=== PATIENT | female | born 1935 | race Caucasian/White ===

== ENCOUNTER 2017-04-02 09:53 | Inpatient (IN) | payer MEDICARE, OTHER ==
[2017-04-02 10:35] LABS: CHLORIDE,CL 104 mEq/L (98-106); SODIUM,NA 143 mEq/L (136-145)
[2017-04-02] MEDS ORDERED: Furosemide 40 MG Tab PO PRN (11:37)
[2017-04-02] MEDS ORDERED: hydrOXYzine HCl 25 MG Tab PO PRN (11:37)
[2017-04-02] MEDS ORDERED: Albuterol/Ipratropium 3.0-0.5 MG/3 ML Neb Soln NEB PRN (11:55)
[2017-04-02] MEDS ORDERED: Sodium Chloride 0.9% 1,000 ML IV SCH (11:55)
[2017-04-02] MEDS ORDERED: Acetaminophen 325 MG Tab PO PRN (11:55)
[2017-04-02] MEDS ORDERED: Ibuprofen 200 MG Tab PO PRN (11:55)
[2017-04-02] MEDS ORDERED: LORazepam 2 MG/ML Syringe IVPUSH STA (12:28)
[2017-04-02] MEDS: cefTRIAXone 1 GM Vial IVPUSH SCH (13:52)
[2017-04-02] MEDS ORDERED: traMADol 50 MG Tab PO PRN (14:37)
[2017-04-02] MEDS ORDERED: Warfarin 5 MG Tab PO SCH (14:45)
[2017-04-02] MEDS: Sodium Chloride 0.9% 1,000 ML IV SCH (15:55)
[2017-04-02] MEDS: Metoprolol Tartrate 25 MG Tab PO SCH (20:02)
[2017-04-02] MEDS: Acetaminophen/HYDROcodone 325-5 MG Tab PO PRN (23:11)
[2017-04-03] MEDS: Acetaminophen/HYDROcodone 325-5 MG Tab PO PRN ×2 (02:47→19:42)
[2017-04-03] MEDS: Sodium Chloride 0.9% 1,000 ML IV SCH ×2 (05:15→16:02)
[2017-04-03] MEDS ORDERED: NIFEdipine 30 MG Tab.ER PO SCH (08:00)
[2017-04-03] MEDS ORDERED: [UNRECOGNIZED DRUG - OTHER] PO SCH (08:00)
[2017-04-03] MEDS ORDERED: Non-Formulary Medication 1 Each (Cholecalciferol (Vitamin D3) [Vitamin D] 5,000 UNIT) PO SCH (08:00)
--- NOTE | 2017-04-03 08:58 | HP ---
CHIEF COMPLAINT: Dizziness, weakness, and slurred speech. HISTORY OF PRESENT ILLNESS: The patient's is also at the bedside with the patient. He also helps the patient with history as she is not able to say everything. The patient and at bedside reports, the patient in the last 10 days has been having some dizziness. also reports that the patient over the last 10 days has had slurred speech. He reports over the last 10 days, her slurred speech has actually become worse in nature and sometimes at points where he cannot even understand her. He does report too that she used to be able to ambulate without any difficulty, without a cane, but over the last 10 days her gait has become very irregular and at times, she looks as though she is going to fall over. He says it does not look like she is going to fall over from either side to side, but there is no distinction between which side that she may fall to or lean. He does report it looks like she is kind of shuffling her gait, almost kind of stumbles at times. She has not fallen, but he does report he has encouraged her to use a cane. She has been using a cane, but she also does have some gait difficulties with using this. He reports at times it seems like she has been confused or little disoriented. He says she is just not really acting herself and she does not know about her daily routines, which is totally unlike her. He reports that she is normally fully alert, fully oriented, converse in full and complete sentences without difficulty and she does not have any slurred speech. He is predominantly historian here. The patient does report that it feels like she just feels kind of generally weak and she has had dizziness. She does state that she feels like she has had a stroke. She also does report some mild dysuria, was going on for the last week or so. The patient also reports that she has had some nausea and generalized headache. She also reports she has had ringing in both of her ears. ACTIVE PROBLEMS: Confusion, migraines, diarrhea, allergic rhinitis, anemia, atrial fibrillation, CAD, dizziness, essential hypertension, fatigue, GERD, hyperlipidemia, AR, osteopenia, TIA, generalized weakness, rheumatoid arthritis. CURRENT MEDICATIONS: Calcium, magnesium, Lasix, hydroxyzine, lutein, magnesium oxide, metoprolol tartrate, oxybutynin, stool softener, tramadol, warfarin. ALLERGIES: CEFTIN, , DELON, CELEBREX, CODEINE, LINEZOLID, MACROBID, PENICILLINS, MORPHINE. PAST FAMILY AND SOCIAL HISTORY: Not pertinent. REVIEW OF SYSTEMS: Dizziness, headache, ringing in the ears, nausea, headache, generalized weakness, slurred speech, gait ataxia. Denies syncope, neck pain, neck stiffness, chest pain, shortness of breath, fever, abdominal pain, bowel changes, rashes. Denies unilateral weaknesses. PHYSICAL EXAMINATION: VITAL SIGNS: Temperature 96.5, heart rate 72, respirations 16, and blood pressure 146/80. GENERAL: The patient is alert. She is oriented as well. HEENT: Bilateral TMs hearing aids are removed and replaced after exam. Bilateral TMs canals are normal. Bilateral eyes, PERRL. She does find it difficult to EOMI. Nose, normal. Mouth, no pharyngeal erythema, exudate, or abnormality. NECK: Range of motion normal. Supple. Trachea midline. No lymphadenopathy. CARDIOVASCULAR: Regular rate, regular rhythm. There is a possible systolic murmur grade 2/5. RESPIRATORY: Effort normal. Speaks in full sentences. Lung sounds clear all throughout. ABDOMEN: Bowel sounds present. Soft, nontender, nondistended. EXTREMITIES: Pulses +2. Capillary refill less than 2 seconds. Sensory and motor function intact. Neurovascularly intact. NEUROLOGIC: She is equal bilaterally. She does find it difficult to having EOMI. She also finds it difficult to use her tongue in an upward and downward position and when she moves her tongue to the right side she actually tilt her head in assistance what appears like to get her tongue in the right side of the mouth as well on this exam. Although, her upper extremities, I do feel equal cripple worker bilaterally. Extremities, she does struggle to lift her left leg as she reports this is chronic because she has chronic hip pain and left lower leg pain. She reports this is not new. She does have slurred speech on examination. I am unable to understand her. reports this is new over the last 10 days and progressively become worse. TESTING: Urinalysis was obtained. She does have UTI, this is nitrite positive. CMP was obtained. Glucose is 158, BUN is elevated at 44, creatinine is elevated at 2.9, this was 1.3 on December 28 of this year. Her GFR is 15. Her calcium is also high at 12.3. Troponin is negative. BNP is high at 3702. CRP is normal 0.4. EKG done at 10:31 a.m. this morning, rate of 67, that is normal sinus rhythm. Lactic acid is normal at 1.8. PT/INR; her PT is 40.7, her INR is 3.62. She is on Coumadin. CBC; white blood cells normal, hemoglobin 11.6, otherwise, unremarkable. We did obtain a head CT without contrast, this does not show any acute infarcts, does show quite a bit of vessel disease. Recommended an MRI. PLAN: The patient is to follow up with primary care provider as she will be admitted in the hospital inpatient, she has an acute admission. This is due to her renal insufficiency, altered mental status, slurred speech, neurological symptoms, gait ataxia at home, and also UTI. I did admit this patient to Dr. Villalobos as Dr. Nascimento is currently out of the office this week. The patient voices understanding of admission. She agrees with this. I did put orders in [facility] system. We will give her a liter of fluid bolus and then normal saline 75 an hour after this. The patient will be given Rocephin IV for UTI symptoms. We did also order an MRI without contrast of the brain, without out due to renal function and radiologist's recommendations. Cannot exclude that this patient has not had a stroke. Therefore, that is reasoning for MRI. We will wait on those results. I also used past family and social history of this report for H and P for this admission. ASSESSMENT: URINARY TRACT INFECTION, RENAL INSUFFICIENCY, GENERALIZED WEAKNESS, AND ALSO RULE OUT FOR MRI FOR STROKE. MIKEY/DARSHANA /[id number]
[2017-04-03] MEDS: Docusate Sodium 100 MG Cap PO SCH (09:01)
[2017-04-03] MEDS: Metoprolol Tartrate 25 MG Tab PO SCH ×2 (09:02→19:39)
[2017-04-03] MEDS: Vitamin B Complex Cap PO SCH (09:03)
[2017-04-03] MEDS: Oxybutynin 5 MG Tab.ER PO SCH (09:03)
[2017-04-03] MEDS: Cholecalciferol (Vitamin D3) 1,000 Unit Tab PO SCH (09:03)
[2017-04-03] MEDS: cefTRIAXone 1 GM Vial IVPUSH SCH (09:05)
[2017-04-03] MEDS: LUTEIN PO SCH (09:10)
[2017-04-03] MEDS ORDERED: Potassium Chloride 40 MEQ in Premix Bag 1 BAG IV ONE (13:30)
[2017-04-03] MEDS: Simvastatin 20 MG Tab PO SCH (19:39)
[2017-04-03] MEDS: Ondansetron 4 MG/2 ML SDV IV PRN (19:44)
[2017-04-04] MEDS: Sodium Chloride 0.9% 1,000 ML IV SCH ×2 (01:08→14:36)
[2017-04-04] MEDS: Acetaminophen/HYDROcodone 325-5 MG Tab PO PRN ×4 (01:09→22:53)
[2017-04-04] MEDS: cefTRIAXone 1 GM Vial IVPUSH SCH (07:46)
[2017-04-04] MEDS: Cholecalciferol (Vitamin D3) 1,000 Unit Tab PO SCH (07:48)
[2017-04-04] MEDS: Docusate Sodium 100 MG Cap PO SCH (07:48)
[2017-04-04] MEDS: Oxybutynin 5 MG Tab.ER PO SCH (07:48)
[2017-04-04] MEDS: Vitamin B Complex Cap PO SCH (07:48)
[2017-04-04] MEDS: Metoprolol Tartrate 25 MG Tab PO SCH ×2 (07:48→19:32)
[2017-04-04] MEDS: LUTEIN PO SCH (07:57)
--- NOTE | 2017-04-04 09:30 | PN ---
DATE: 04/03/2017 S: Chas is an 82-year-old female who was admitted to the hospital yesterday by Albert Liu and welcome provider with concerns of generalized weakness, concerns of whether or not she is having a UTI or stroke-like symptoms. Family members are present. She states that she is feeling okay today as she really denies any concerns presently. No new onset of any symptoms. States she continues to have some weakness, however, they have been getting her up and ambulating with physical therapy for strengthening. She has remained afebrile. Initial urine culture did come back and show less than 10,000 colonies per mL with a gram-positive growth. She does have a strong history of UTIs with resistance to multiple antibiotics. Blood cultures were negative. O: VITAL SIGNS: Blood pressure 152/76, O2 is 94% on room air, respiratory rate of 20, pulse 65, temp of 98.4. GENERAL: Pleasant, cooperative female. She is sitting in a recliner. Working with physical therapy upon my entry. She does not appear to be any acute distress. HEENT: Grossly unremarkable. LUNGS: Clear to auscultation. I did not hear any adventitious sounds. CARDIAC: Regular rate and rhythm. Systolic murmur is noted. ABDOMEN: Soft, nontender, nondistended. Bowel sounds are normoactive. EXTREMITIES: No pedal edema is noted. LABORATORY WORK: White blood count has remained normal at 5100. INR continues to be high at 3.63 with a PT of 40.8. Creatinine has come down from 2.9 to 2.6. Potassium has dropped from 3.6 to 3.0. Calcium is within normal limits presently. ProBNP initially showed 3702. ASSESSMENT: 1. ACUTE URINARY TRACT INFECTION. 2. GENERALIZED WEAKNESS. 3. RENAL INSUFFICIENCY. P: We will continue with IV Rocephin at this point in time. We will continue with IV fluids as well. I did discuss with the family monitoring her creatinine and her fluid intake. We will also wait for culture. Dr. Nascimento will be back tomorrow to further assess. If they have any concerns sooner, they will have to definitely let us know. KYREE/DARSHANA /[id number]
[2017-04-04] MEDS: Warfarin 2.5 MG Tab PO SCH (15:40)
[2017-04-04] MEDS ORDERED: Magnesium Sulfate/D5W 2 GM in Premix Bag 1 BAG IV ONE (15:43)
[2017-04-04] MEDS: Simvastatin 20 MG Tab PO SCH (19:32)
[2017-04-05] MEDS: Ondansetron 4 MG/2 ML SDV IV PRN (02:54)
[2017-04-05] MEDS: Acetaminophen/HYDROcodone 325-5 MG Tab PO PRN ×3 (02:55→13:59)
[2017-04-05] MEDS: Sodium Chloride 0.9% 1,000 ML IV SCH (05:49)
[2017-04-05] MEDS: Vitamin B Complex Cap PO SCH (08:07)
[2017-04-05] MEDS: cefTRIAXone 1 GM Vial IVPUSH SCH (08:07)
[2017-04-05] MEDS: Metoprolol Tartrate 25 MG Tab PO SCH (08:07)
[2017-04-05] MEDS: Docusate Sodium 100 MG Cap PO SCH (08:07)
[2017-04-05] MEDS: Cholecalciferol (Vitamin D3) 1,000 Unit Tab PO SCH (08:13)
[2017-04-05] MEDS: Oxybutynin 5 MG Tab.ER PO SCH (08:13)
[2017-04-05] MEDS: LUTEIN PO SCH (08:18)
[2017-04-05] MEDS ORDERED: Potassium Chloride 40 MEQ in Premix Bag 1 BAG IV SCH (08:30)
[2017-04-05] MEDS ORDERED: Sodium Chloride 0.45% 1,000 ML IV SCH (08:30)
--- NOTE | 2017-04-05 09:12 | PN ---
DATE: 04/05/2017 Chas Waterman came in with UTI with renal insufficiency. She is hypokalemic this morning so I am going to give her some IV potassium and then hopefully discharge later up on today. RAHUL/DARSHANA /[id number]
--- NOTE | 2017-04-05 09:12 | PN ---
DATE: 04/04/2017 S: Chas Waterman came in with some altered mental state secondary to UTI started on IV Rocephin, much improved today. O: NECK: Supple. CHEST: Clear. CARDIAC: Regular. ABDOMEN: Soft. EXTREMITIES: No edema. ASSESSMENT: 1. LEFT VENTRICULAR SYSTOLIC CONGESTIVE HEART FAILURE. 2. URINARY TRACT INFECTION WITH CONFUSION. 3. ACUTE AND CHRONIC RENAL INSUFFICIENCY. 4. LOW MAGNESIUM. P: Continue present therapy. RAHUL/DARSHANA /[id number]
[2017-04-05] MEDS: Warfarin 2.5 MG Tab PO SCH (12:36)
[2017-04-05 15:57] VITALS: BP 140/73
[2017-04-08] MEDS ORDERED: Warfarin 5 MG Tab PO SCH (12:00)
--- NOTE | 2017-04-09 07:54 | DISCH ---
HOSPITAL COURSE: This is an elderly white female, came in somewhat confused. Made diagnosis of UTI. She was started on intravenous antibiotics. Responded nicely and at the time of discharge, she was less confused. They did start her on normal saline IV and she became hypokalemic, so I corrected that prior to discharge and that will be rechecked next ; otherwise CBC, hemoglobin went from 11.6 to 9.4 related mainly to infection or hydration. INR was adequate. Creatinine went from 2.9 down to 2.4, that will be rechecked outpatient. Potassium went from 3.6 to 2.9, then was given IV potassium. C- reactive protein went from 1.1 to 0.8. ProBNP was 3702. Urinalysis, positive nitrates. DISPOSITION: The patient is now discharged home. We will see her back in the clinic next week. At that time, we will do a CBC, panel-8, and INR. DISCHARGE MEDICATIONS: Home medications plus Macrobid b.i.d. for 6 days and [place]. DISCHARGE DIAGNOSIS: 1. URINARY TRACT INFECTION. 2. ACUTE AND CHRONIC RENAL INSUFFICIENCY. 3. LEFT VENTRICULAR SYSTOLIC CONGESTIVE HEART FAILURE. 4. HYPERTENSION. RAHUL/DARSHANA /[id number]
== END 2017-04-05 17:50 | disposition home or self-care (01) | DRG 690 ==
LOC: CC.CT 09:53 → UNDOADMIN 11:06 → CC.MS 11:06
PROVIDERS: ADMIT Nurse Practitioner; ATTEND General Practice
DX: N39.0 Urinary tract infection, site not specified (principal); R42 Dizziness and giddiness; I13.0 Hypertensive heart and chronic kidney disease with heart failure and stage 1 through stage 4 chronic kidney disease, or unspecified chronic kidney disease; I50.1 Left ventricular failure, unspecified; N17.9 Acute kidney failure, unspecified; I25.10 Atherosclerotic heart disease of native coronary artery without angina pectoris; N28.9 Disorder of kidney and ureter, unspecified; R26.0 Ataxic gait; R47.81 Slurred speech; R53.1 Weakness; I48.91 Unspecified atrial fibrillation; D64.9 Anemia, unspecified; K21.9 Gastro-esophageal reflux disease without esophagitis; E78.5 Hyperlipidemia, unspecified; I25.2 Old myocardial infarction; M85.80 Other specified disorders of bone density and structure, unspecified site; M06.9 Rheumatoid arthritis, unspecified; Z86.73 Personal history of transient ischemic attack (TIA), and cerebral infarction without residual deficits; Z88.0 Allergy status to penicillin; Z88.6 Allergy status to analgesic agent; Z88.1 Allergy status to other antibiotic agents; Z88.8 Allergy status to other drugs, medicaments and biological substances; Z79.01 Long term (current) use of anticoagulants; Z79.899 Other long term (current) drug therapy; E83.42 Hypomagnesemia; N18.9 Chronic kidney disease, unspecified; E87.6 Hypokalemia; R41.82 Altered mental status, unspecified
CPT/HCPCS: 36415; 70450; 71020; 80048; 80053; 81001; 83605; 83735; 83880; 84484; 85025; 85610; 86140; 87040; 87086; 93005; 93010; 97110-GP; 97161-GP; A9270-GY; J0696; J2060; J2405; J3475; J3480; J7030

== ENCOUNTER 2017-04-06 11:39 | Inpatient (IN) | payer MEDICARE, OTHER ==
[2017-04-06 12:08] LABS: CHLORIDE,CL 109 mEq/L (98-106); SODIUM,NA 145 mEq/L (136-145)
--- NOTE | 2017-04-06 12:19 | EDM.PDOC ---
ED HPI GENERAL MEDICAL PROBLEM - General Chief Complaint: Chest Pain Stated Complaint: chest pain Time Seen by Provider: 04/06/17 11:49 Source of Information: Reports: Patient History Limitations: Reports: No Limitations - History of Present Illness INITIAL COMMENTS - FREE TEXT/NARRATIVE: Patient woke up this mourning and started having chest pain shortly afterward, she states that oxygen has improved her car[place]qu[place] considerably, and is not having pain at this time. patient was discharged from the hospatal yesterday for decreased LOC and treatment of UTI. Onset: Today Duration: Hour(s): Location: Reports: Chest Quality: Reports: Dull, Pressure Severity: Moderate Improves with: Reports: Other Worsens with: Reports: None Associated Symptoms: Reports: Shortness of Breath Left Chest Pain Score (Numeric/FACES): 4 - Related Data Allergies Allergy/AdvReac Type Severity Reaction Status Date / Time cefuroxime axetil Allergy Hives Verified 04/06/17 11:26 [From Ceftin] celecoxib [From Celebrex] Allergy Itching Verified 04/06/17 11:26 ciprofloxacin [From Cipro] Allergy Body Aches Verified 04/06/17 11:26 codeine Allergy Stomach Verified 04/06/17 11:26 Upset fexofenadine HCl Allergy Itching Verified 04/06/17 11:26 [From Maria De Jesus] linezolid Allergy Body Aches Verified 04/06/17 11:26 morphine Allergy Cannot Verified 04/06/17 11:26 Remember nitrofurantoin Allergy Rash Verified 04/06/17 11:26 [From Macrobid] Penicillins Allergy Rash Verified 04/06/17 11:26 Sulfa (Sulfonamide Allergy Hives Verified 04/06/17 11:26 Antibiotics) Home Meds: Home Meds Furosemide [Lasix] 40 mg PO DAILY PRN 03/05/14 [History] Oxybutynin Chloride [Oxybutynin Chloride ER] 10 mg PO DAILY 03/05/14 [History] José Miguel Cit/Mag/D3/Zn/Real Estate Underwriter/Srinivas/Bor [Citracal-Vit D + Magnesium] 1 tab PO BID [History] Vitamin B Complex 1 cap PO DAILY 07/26/16 [History] hydrOXYzine Pamoate [Hydroxyzine Pamoate] 25 mg PO TID PRN 07/26/16 [History] Cholecalciferol (Vitamin D3) [Vitamin D] 5,000 unit PO DAILY 04/02/17 [History] Docusate Sodium [Stool Softener] 200 mg PO DAILY 04/02/17 [History] Lutein 20 mg PO DAILY 04/02/17 [History] Metoprolol Tartrate 25 mg PO BID 04/02/17 [History] Warfarin [Coumadin] 2.5 mg PO SUTUWETHFRSA 04/02/17 [History] Warfarin [Coumadin] 5 mg PO MO 04/02/17 [History] traMADol HCl [Tramadol HCl] 50 mg PO QID PRN 04/02/17 [History] Acetaminophen/HYDROcodone [[place] 325-5 MG] 1 tab PO Q4H PRN #50 tablet 04/05/17 [Rx] Cephalexin [Keflex] 250 mg PO BID #10 capsule 04/05/17 [Rx] Past Medical History HEENT History: Reports: Allergic Rhinitis, Cataract, Hard of Hearing Cardiovascular History: Reports: Blood Clots/VTE/DVT, High Cholesterol, Hypertension Gastrointestinal History: Reports: GERD, Hiatal Hernia Genitourinary History: Reports: Urinary Incontinence, UTI, Recurrent Other Genitourinary History: nocturia, overactive bladder Musculoskeletal History: Reports: Arthritis, Back Pain, Chronic, RA, Other (See Below) Other Musculoskeletal History: degenerative joint disease, left hip pain, left knee pain, arthralgia, osteopenia Neurological History: Reports: CVA, Migraines Hematologic History: Reports: Other (See Below) Other Hematologic History: vitamin D definciency Dermatologic History: Reports: Urticaria - Past Surgical History HEENT Surgical History: Reports: Cataract Surgery GI Surgical History: Reports: Appendectomy, Cholecystectomy, Colostomy Female Surgical History: Reports: Section, Hysterectomy, Oophorectomy Neurological Surgical History: Reports: C-Spine Musculoskeletal Surgical History: Reports: Knee Replacement, Other (See Below) Other Musculoskeletal Surgeries/Procedures:: neck surgery Social & Family History - Family History Family Medical History: Noncontributory - Tobacco Use Smoking Status *Q: Never Smoker Second Hand Smoke Exposure: No - Caffeine Use Caffeine Use: Reports: None - Recreational Drug Use Recreational Drug Use: No ED ROS GENERAL - Review of Systems Review Of Systems: See Below Constitutional: Reports: No Symptoms HEENT: Reports: No Symptoms Respiratory: Reports: Shortness of Breath Cardiovascular: Reports: Chest Pain Endocrine: Reports: No Symptoms GI/Abdominal: Reports: No Symptoms : Reports: No Symptoms Musculoskeletal: Reports: No Symptoms Skin: Reports: No Symptoms Neurological: Reports: Confusion Hematologic/Lymphatic: Reports: No Symptoms Immunologic: Reports: No Symptoms ED EXAM, GENERAL - Physical Exam Exam: See Below Exam Limited By: No Limitations General Appearance: Lethargic Ears: Normal External Exam Nose: Normal Inspection Throat/Mouth: Normal Inspection Head: Atraumatic, Normocephalic Neck: Normal Inspection, Supple Respiratory/Chest: No Respiratory Distress, Lungs Clear Cardiovascular: Normal Peripheral Pulses, Regular Rate, Rhythm, No Edema GI/Abdominal: Normal Bowel Sounds, Soft, Non-Tender Extremities: Normal Inspection, Normal Range of Motion Neurological: Inattentive Psychiatric: Depressed Mood Skin Exam: Warm, Dry, Intact Lymphatic: No Adenopathy EKG INTERPRETATION EKG Date: 04/06/17 Rhythm: NSR Course - Vital Signs Last Recorded V/S: Last Vital Signs Temp 98.9 F 04/06/17 17:37 Pulse 69 04/06/17 17:37 Resp 18 04/06/17 17:37 BP 197/79 H 04/06/17 17:37 Pulse Ox 92 L 04/06/17 17:37 - Orders/Labs/Meds Orders: Active Orders 24 hr Category Date Time Status Chest 2V [CR] Stat Exams 04/06/17 11:32 Taken Potassium Chloride [Klor-Con 10] Med 04/06/17 17:30 Active 10 meq PO BIDMEALS Medication Orders Hydrocodone Bitart/Acetaminophen ([place] 325-5 Mg) 2 tab PO Q4H PRN PRN Reason: Pain (moderate 4-6) Hydrocodone Bitart/Acetaminophen ([place] 325-5 Mg) 1 tab PO Q4H PRN PRN Reason: Pain Cephalexin (Keflex) 250 mg PO BID LENO Docusate Sodium (Colace) 200 mg PO DAILY LENO Enoxaparin Sodium (Lovenox) 40 mg SUBCUT Q12H LENO Furosemide (Lasix) 40 mg PO DAILY PRN PRN Reason: Edema Metoprolol Tartrate (Lopressor) 25 mg PO BID [facility] Non-Formulary Medication (José Miguel Cit/Mag/D3/Zn/Real Estate Underwriter/Srinivas/Bor [Citracal-Vit D + Magnesium]) 1 tab PO BID [facility] Non-Formulary Medication (Cholecalciferol (Vitamin D3) [Vitamin D]) 5,000 unit PO DAILY [facility] Non-Formulary Medication (Lutein [Lutein]) 20 mg PO DAILY [facility] Non-Formulary Medication (Oxybutynin Chloride [Oxybutynin Chloride Er]) 10 mg PO DAILY [facility] Non-Formulary Medication (Hydroxyzine Pamoate [Hydroxyzine Pamoate]) 25 mg PO TID PRN PRN Reason: Itching Ondansetron HCl (Zofran Odt) 4 mg PO Q4H PRN PRN Reason: nausea, able to take PO Potassium Chloride (Klor-Con 10) 10 meq PO BIDMEALS [facility] Last Admin: 04/06/17 18:31 Dose: 10 meq Vitamin B Complex (Vitamin B Complex) each PO DAILY [facility] Warfarin Sodium (Coumadin) 2.5 mg PO SUTUWETHFRSA [facility] Warfarin Sodium (Coumadin) 5 mg PO MO [facility] Labs: Laboratory Tests 04/06/17 04/06/17 04/06/17 Range/Units 11:50 11:50 11:50 WBC 5.7 (5.0-10.0) 10^3/uL RBC 3.47 L (4.00-5.50) 10^6/uL Hgb 9.5 L (12.0-16.0) g/dL Hct 29.7 L (37.0-47.0) % MCV 85.6 (82.0-94.0) fL MCH 27.4 (27.0-32.0) pg MCHC 32.0 L (33.0-38.0) g/dL RDW Coeff of Lakshmi 17.1 H (11.0-15.0) % Plt Count 231 (150-400) 10^3/uL Neut % (Auto) 61.2 (35-85) % Lymph % (Auto) 19.0 (10-55) % Frontier % (Auto) 12.9 (0-16) % Eos % (Auto) 6.0 H (0-5) % Baso % (Auto) 0.9 (0-3) % Neut # (Auto) 3.47 (1.80-7.00) 10^3/uL Lymph # (Auto) 1.08 (1.00-4.80) 10^3/uL Frontier # (Auto) 0.73 (0.00-0.80) 10^3/uL Eos # (Auto) 0.34 (0.00-0.45) 10^3/uL Baso # (Auto) 0.05 10^3/uL PT 25.8 H (9.7-12.3) SEC INR 2.33 H (0.92-1.18) APTT 37.2 (20.0-45.0) SEC Sodium 145 (136-145) mEq/L Potassium 3.2 L (3.5-5.0) mEq/L Chloride 109 H (98-106) mEq/L Carbon Dioxide 25 (21-32) mmol/L BUN 26 H (7-18) mg/dL Creatinine 2.4 H (0.6-1.0) mg/dL Est Cr Clr Drug Dosing TNP Estimated GFR (MDRD) 19 L (>=60) mL/min Glucose 115 H (75-99) mg/dL Calcium 9.9 (8.4-10.1) mg/dL Lactate Dehydrogenase 237 H (100-190) U/L Creatine Kinase 33 (21-215) U/L Troponin I 0.088 H (0.00-0.06) ng/mL Urine Color (YELLOW) Urine Appearance (CLEAR) Urine pH (4.5-8.0) Ur Specific [place] (1.003-1.020) Urine Protein (NEGATIVE) mg/dL Urine Glucose (UA) (NEGATIVE) mg/dL Urine Ketones (NEGATIVE) mg/dL Urine Occult Blood (NEGATIVE) Urine Nitrite (NEGATIVE) Urine Bilirubin (NEGATIVE) Urine Urobilinogen (0.2-1.0) EU/dL Ur Leukocyte Esterase (NEGATIVE) Urine RBC (0-5) /HPF Urine WBC (0-5) /HPF Ur Squamous Epith Cells (NOT SEEN) /HPF Urine Mucus (NOT SEEN) /HPF 04/06/17 04/06/17 Range/Units 14:30 16:00 WBC (5.0-10.0) 10^3/uL RBC (4.00-5.50) 10^6/uL Hgb (12.0-16.0) g/dL Hct (37.0-47.0) % MCV (82.0-94.0) fL MCH (27.0-32.0) pg MCHC (33.0-38.0) g/dL RDW Coeff of Lakshmi (11.0-15.0) % Plt Count (150-400) 10^3/uL Neut % (Auto) (35-85) % Lymph % (Auto) (10-55) % Frontier % (Auto) (0-16) % Eos % (Auto) (0-5) % Baso % (Auto) (0-3) % Neut # (Auto) (1.80-7.00) 10^3/uL Lymph # (Auto) (1.00-4.80) 10^3/uL Frontier # (Auto) (0.00-0.80) 10^3/uL Eos # (Auto) (0.00-0.45) 10^3/uL Baso # (Auto) 10^3/uL PT (9.7-12.3) SEC INR (0.92-1.18) APTT (20.0-45.0) SEC Sodium (136-145) mEq/L Potassium (3.5-5.0) mEq/L Chloride (98-106) mEq/L Carbon Dioxide (21-32) mmol/L BUN (7-18) mg/dL Creatinine (0.6-1.0) mg/dL Est Cr Clr Drug Dosing Estimated GFR (MDRD) (>=60) mL/min Glucose (75-99) mg/dL Calcium (8.4-10.1) mg/dL Lactate Dehydrogenase (100-190) U/L Creatine Kinase (21-215) U/L Troponin I 0.108 H (0.00-0.06) ng/mL Urine Color Yellow (YELLOW) Urine Appearance Clear (CLEAR) Urine pH 6.0 (4.5-8.0) Ur Specific [place] 1.007 (1.003-1.020) Urine Protein Negative (NEGATIVE) mg/dL Urine Glucose (UA) Negative (NEGATIVE) mg/dL Urine Ketones Negative (NEGATIVE) mg/dL Urine Occult Blood Negative (NEGATIVE) Urine Nitrite Negative (NEGATIVE) Urine Bilirubin Negative (NEGATIVE) Urine Urobilinogen 0.2 (0.2-1.0) EU/dL Ur Leukocyte Esterase Negative (NEGATIVE) Urine RBC Not seen (0-5) /HPF Urine WBC 0-5 (0-5) /HPF Ur Squamous Epith Cells Occasional H (NOT SEEN) /HPF Urine Mucus Occasional H (NOT SEEN) /HPF Meds: Medications Generic Name Dose Route Start Last Admin Trade Name Freq PRN Reason Stop Dose Admin Hydrocodone Bitart/Acetaminophen 2 tab 04/06/17 18:16 [place] 325-5 Mg PO Q4H PRN Pain (moderate 4-6) Hydrocodone Bitart/Acetaminophen 1 tab 04/06/17 18:28 [place] 325-5 Mg PO Q4H PRN Pain Cephalexin 250 mg 04/06/17 20:00 Keflex PO BID [facility] Docusate Sodium 200 mg 04/07/17 08:00 Colace PO DAILY [facility] Enoxaparin Sodium 40 mg 04/06/17 18:30 Lovenox SUBCUT Q12H [facility] Furosemide 40 mg 04/06/17 18:28 Lasix PO DAILY PRN Edema Metoprolol Tartrate 25 mg 04/06/17 20:00 Lopressor PO BID [facility] Non-Formulary Medication 1 tab 04/06/17 20:00 José Miguel Cit/Mag/D3/Zn/Real Estate Underwriter/Srinivas/Bor [Citracal-Vit D + Magnesium] PO BID [facility] Non-Formulary Medication 5,000 unit 04/07/17 08:00 Cholecalciferol (Vitamin D3) [Vitamin D] PO DAILY [facility] Non-Formulary Medication 20 mg 04/07/17 08:00 Lutein [Lutein] PO DAILY [facility] Non-Formulary Medication 10 mg 04/07/17 08:00 Oxybutynin Chloride [Oxybutynin Chloride Er] PO DAILY [facility] Non-Formulary Medication 25 mg 04/06/17 18:28 Hydroxyzine Pamoate [Hydroxyzine Pamoate] PO TID PRN Itching Ondansetron HCl 4 mg 04/06/17 18:16 Zofran Odt PO Q4H PRN nausea, able to take PO Potassium Chloride 10 meq 04/06/17 17:30 04/06/17 18:31 Klor-Con 10 PO 10 meq BIDMEALS [facility] Administration Vitamin B Complex each 04/07/17 08:00 Vitamin B Complex PO DAILY [facility] Warfarin Sodium 2.5 mg 04/06/17 18:30 Coumadin PO SUTUWETHFRSA [facility] Warfarin Sodium 5 mg 04/08/17 18:28 Coumadin PO MO LENO Discontinued Medications Generic Name Dose Route Start Last Admin Trade Name Freq PRN Reason Stop Dose Admin Hydrocodone Bitart/Acetaminophen 1 tab 04/06/17 14:47 04/06/17 15:06 [place] 325-5 Mg PO 04/06/17 14:48 1 tab ONETIME ONE Administration Departure - Departure Time of Disposition: 18:33 Disposition: Admitted As Inpatient 65 Condition: fair Clinical Impression: Acute myocardial infarction - My Orders Last 24 Hours: My Active Orders 04/06/17 11:32 Chest 2V [CR] Stat 04/06/17 17:30 Potassium Chloride [Klor-Con 10] 10 meq PO BIDMEALS - Assessment/Plan Last 24 Hours: My Active Orders 04/06/17 11:32 Chest 2V [CR] Stat 04/06/17 17:30 Potassium Chloride [Klor-Con 10] 10 meq PO BIDMEALS
[2017-04-06] MEDS ORDERED: Acetaminophen/HYDROcodone 325-5 MG Tab PO ONE (14:47)
[2017-04-06] MEDS ORDERED: Ondansetron 4 MG Tab.DIS PO PRN (18:16)
[2017-04-06] MEDS ORDERED: Furosemide 40 MG Tab PO PRN (18:28)
[2017-04-06] MEDS ORDERED: Warfarin 5 MG Tab PO SCH (18:30)
[2017-04-06] MEDS: Potassium Chloride 10 MEQ Tab.ER PO SCH (18:31)
[2017-04-06] MEDS ORDERED: hydrOXYzine HCl 25 MG Tab PO PRN (18:52)
[2017-04-06] MEDS: Metoprolol Tartrate 25 MG Tab PO SCH (19:34)
[2017-04-06] MEDS: Calcium Carbonate/Magnesium Oxide/Zinc Oxide Tab PO SCH (19:34)
[2017-04-06] MEDS: Enoxaparin 40 MG/0.4 ML Syringe SUBCUT SCH (19:35)
[2017-04-06] MEDS: Cephalexin 250 MG Cap PO SCH (19:35)
--- NOTE | 2017-04-06 20:24 | PCM.PN ---
- General Info Date of Service: 04/06/17 (After talking extensivley with the patient and her family, and instructing them that it looked as if Ms. Waterman has had a SD, i gave them the option to tranfer to [place] to a cardioligist, but they decined stating rena they really didnt want to persue things at this stage. she recently had a SD a month or so ago, and there was not much done then.) Functional Status: Reports: pain controlled - Review of Systems General: Reports: No Symptoms HEENT: Reports: no symptoms Pulmonary: Reports: no symptoms Cardiovascular: Reports: Chest Pain Gastrointestinal: Reports: No symptoms Genitourinary: Reports: no symptoms Musculoskeletal: Reports: no symptoms Skin: Reports: no symptoms Neurological: Reports: No Symptoms Psychiatric: Reports: no symptoms (patient and family opted to stay here in the hospital, and look into correction placement next week.) - Patient Data Vitals - most recent: Last Vital Signs Temp 98.3 F 04/06/17 19:24 Pulse 78 04/06/17 19:34 Resp 20 04/06/17 19:24 BP 156/73 H 04/06/17 19:34 Pulse Ox 93 L 04/06/17 19:24 Weight - most recent: 140 lb Lab Results last 24 hrs: Laboratory Results - last 24 hr 04/06/17 Range/Units 19:15 Troponin I 0.102 H (0.00-0.06) ng/mL Med Orders - Current: Current Medications Hydrocodone Bitart/Acetaminophen ([place] 325-5 Mg) 2 tab PO Q4H PRN PRN Reason: Pain (moderate 4-6) Hydrocodone Bitart/Acetaminophen ([place] 325-5 Mg) 1 tab PO Q4H PRN PRN Reason: Pain Calcium/Magnesium/Zinc (Calcium & Magnesium Plus Zinc) 1 tab PO BID [facility] Last Admin: 04/06/17 19:34 Dose: 1 tab Cephalexin (Keflex) 250 mg PO BID [facility] Last Admin: 04/06/17 19:35 Dose: 250 mg Cholecalciferol (Vitamin D3) 5,000 units PO DAILY [facility] Docusate Sodium (Colace) 200 mg PO DAILY [facility] Enoxaparin Sodium (Lovenox) 40 mg SUBCUT Q12H [facility] Last Admin: 04/06/17 19:35 Dose: 40 mg Furosemide (Lasix) 40 mg PO DAILY PRN PRN Reason: Edema Hydroxyzine HCl (Atarax) 25 mg PO TID PRN PRN Reason: Itching Metoprolol Tartrate (Lopressor) 25 mg PO BID [facility] Last Admin: 04/06/17 19:34 Dose: 25 mg Non-Formulary Medication (Lutein [Lutein]) 20 mg PO DAILY [facility] Ondansetron HCl (Zofran Odt) 4 mg PO Q4H PRN PRN Reason: nausea, able to take PO Oxybutynin Chloride (Oxybutynin Er) 10 mg PO DAILY [facility] Potassium Chloride (Klor-Con 10) 10 meq PO BIDMEALS [facility] Last Admin: 04/06/17 18:31 Dose: 10 meq Vitamin B Complex (Vitamin B Complex) 1 each PO DAILY [facility] Warfarin Sodium (Coumadin) 2.5 mg PO SuTuWeThFrSa@1200 [facility] Last Admin: 04/06/17 19:34 Dose: 2.5 mg Warfarin Sodium (Coumadin) 5 mg PO Mo@1200 [facility] Discontinued Medications Hydrocodone Bitart/Acetaminophen ([place] 325-5 Mg) 1 tab PO ONETIME ONE Stop: 04/06/17 14:48 Last Admin: 04/06/17 15:06 Dose: 1 tab - Problem List Review Problem List Initiated/Reviewed/Updated: Yes - My Orders Last 24 Hours: My Active Orders 04/06/17 18:16 Oxygen Therapy [RC] PRN VTE/DVT Education [RC] PER UNIT ROUTINE Vital Signs [RC] Q4H Acetaminophen/HYDROcodone [[place] 325-5 MG] 2 tab PO Q4H PRN Ondansetron [Zofran ODT] 4 mg PO Q4H PRN Resuscitation Status Routine 04/06/17 18:21 Cardiac Monitoring [RC] CONTINUOUS 04/06/17 18:28 Acetaminophen/HYDROcodone [[place] 325-5 MG] 1 tab PO Q4H PRN Furosemide [Lasix] 40 mg PO DAILY PRN 04/06/17 18:30 Warfarin [Coumadin] 2.5 mg PO SuTuWeThFrSa@1200 04/06/17 18:52 hydrOXYzine HCl [Atarax] 25 mg PO TID PRN 04/06/17 20:00 Calcium/Magnesium/Zinc [Calcium & Magnesium plus Zinc] 1 tab PO BID Cephalexin [Keflex] 250 mg PO BID Enoxaparin [Lovenox] 40 mg SUBCUT Q12H Metoprolol Tartrate [Lopressor] 25 mg PO BID 04/06/17 Dinner 2 Gram Sodium Diet [DIET] 04/07/17 05:11 BASIC METABOLIC PANEL,BMP [CHEM] AM CBC WITH AUTO DIFF [HEME] AM TROPONIN I [CHEM] AM EKG 12 Lead [EK] AM 04/07/17 08:00 Cholecalciferol (Vitamin D3) [Vitamin D3] 5,000 units PO DAILY Docusate Sodium [Colace] 200 mg PO DAILY Lutein [Lutein] 20 mg PO DAILY Oxybutynin [Oxybutynin ER] 10 mg PO DAILY Vitamin B Complex 1 each PO DAILY 04/08/17 12:00 Warfarin [Coumadin] 5 mg PO Mo@1200
[2017-04-06] MEDS: Acetaminophen/HYDROcodone 325-5 MG Tab PO PRN (22:10)
[2017-04-07] MEDS: Acetaminophen/HYDROcodone 325-5 MG Tab PO PRN ×3 (04:58→19:52)
[2017-04-07] MEDS: Docusate Sodium 100 MG Cap PO SCH (08:24)
[2017-04-07] MEDS: Enoxaparin 40 MG/0.4 ML Syringe SUBCUT SCH (08:24)
[2017-04-07] MEDS: Calcium Carbonate/Magnesium Oxide/Zinc Oxide Tab PO SCH ×2 (08:25→19:51)
[2017-04-07] MEDS: Metoprolol Tartrate 25 MG Tab PO SCH ×2 (08:25→19:51)
[2017-04-07] MEDS: Cephalexin 250 MG Cap PO SCH ×2 (08:25→19:51)
[2017-04-07] MEDS: Oxybutynin 5 MG Tab.ER PO SCH (08:26)
[2017-04-07] MEDS: Vitamin B Complex Cap PO SCH (08:26)
[2017-04-07] MEDS: Potassium Chloride 10 MEQ Tab.ER PO SCH ×2 (08:26→17:41)
[2017-04-07] MEDS: Cholecalciferol (Vitamin D3) 1,000 Unit Tab PO SCH (08:26)
--- NOTE | 2017-04-07 12:30 | PCM.PN ---
- General Info Date of Service: 04/07/17 Admission Dx/Problem (Free Text): Acute ND Functional Status: Reports: pain controlled - Review of Systems General: Reports: No Symptoms HEENT: Reports: no symptoms Pulmonary: Reports: no symptoms Cardiovascular: Reports: Chest Pain Gastrointestinal: Reports: No symptoms Genitourinary: Reports: no symptoms Musculoskeletal: Reports: no symptoms Skin: Reports: no symptoms Neurological: Reports: No Symptoms Psychiatric: Reports: no symptoms Systems Review Comment:: Sitting up in chair visiting with her daughters. Denies any pain at this time, but does state she has a feeling of heaviness in her chest. VS stable, labs ok , but serum K is still trending down, will increase po Kdur for a few days to correct. Patient is anxious to start getting up and walking, I instructed her to take it easy for the rest of the day and start walking tomorrow. Will continue to monitor closely. - Patient Data Vitals - most recent: Last Vital Signs Temp 97.8 F 04/07/17 11:48 Pulse 66 04/07/17 11:48 Resp 18 04/07/17 11:48 BP 166/72 H 04/07/17 11:48 Pulse Ox 92 L 04/07/17 11:48 Weight - most recent: 140 lb Lab Results last 24 hrs: Laboratory Results - last 24 hr 04/06/17 04/07/17 04/07/17 Range/Units 19:15 07:15 07:15 WBC 5.3 (5.0-10.0) 10^3/uL RBC 3.29 L (4.00-5.50) 10^6/uL Hgb 9.0 L (12.0-16.0) g/dL Hct 28.4 L (37.0-47.0) % MCV 86.3 (82.0-94.0) fL MCH 27.4 (27.0-32.0) pg MCHC 31.7 L (33.0-38.0) g/dL RDW Coeff of Lakshmi 17.2 H (11.0-15.0) % Plt Count 219 (150-400) 10^3/uL Neut % (Auto) 55.0 (35-85) % Lymph % (Auto) 21.8 (10-55) % [place] % (Auto) 15.2 (0-16) % Eos % (Auto) 7.4 H (0-5) % Baso % (Auto) 0.6 (0-3) % Neut # (Auto) 2.91 (1.80-7.00) 10^3/uL Lymph # (Auto) 1.15 (1.00-4.80) 10^3/uL [place] # (Auto) 0.80 (0.00-0.80) 10^3/uL Eos # (Auto) 0.39 (0.00-0.45) 10^3/uL Baso # (Auto) 0.03 10^3/uL Sodium 145 (136-145) mEq/L Potassium 3.1 L (3.5-5.0) mEq/L Chloride 110 H (98-106) mEq/L Carbon Dioxide 26 (21-32) mmol/L BUN 25 H (7-18) mg/dL Creatinine 2.2 H (0.6-1.0) mg/dL Est Cr Clr Drug Dosing 16.73 mL/min Estimated GFR (MDRD) 21 L (>=60) mL/min Glucose 94 (75-99) mg/dL Calcium 9.6 (8.4-10.1) mg/dL Troponin I 0.102 H 0.083 H (0.00-0.06) ng/mL Med Orders - Current: Current Medications Hydrocodone Bitart/Acetaminophen ([place] 325-5 Mg) 2 tab PO Q4H PRN PRN Reason: Pain (moderate 4-6) Last Admin: 04/07/17 04:58 Dose: 2 tab Hydrocodone Bitart/Acetaminophen ([place] 325-5 Mg) 1 tab PO Q4H PRN PRN Reason: Pain Calcium/Magnesium/Zinc (Calcium & Magnesium Plus Zinc) 1 tab PO BID [facility] Last Admin: 04/07/17 08:25 Dose: 1 tab Cephalexin (Keflex) 250 mg PO BID [facility] Last Admin: 04/07/17 08:25 Dose: 250 mg Cholecalciferol (Vitamin D3) 5,000 units PO DAILY [facility] Last Admin: 04/07/17 08:26 Dose: 5,000 units Docusate Sodium (Colace) 200 mg PO DAILY [facility] Last Admin: 04/07/17 08:24 Dose: 200 mg Furosemide (Lasix) 40 mg PO DAILY PRN PRN Reason: Edema Hydroxyzine HCl (Atarax) 25 mg PO TID PRN PRN Reason: Itching Metoprolol Tartrate (Lopressor) 25 mg PO BID [facility] Last Admin: 04/07/17 08:25 Dose: 25 mg Non-Formulary Medication (Lutein [Lutein]) 20 mg PO DAILY [facility] Ondansetron HCl (Zofran Odt) 4 mg PO Q4H PRN PRN Reason: nausea, able to take PO Oxybutynin Chloride (Oxybutynin Er) 10 mg PO DAILY [facility] Last Admin: 04/07/17 08:26 Dose: 10 mg Potassium Chloride (Klor-Con 10) 20 meq PO BIDMEALS [facility] Vitamin B Complex (Vitamin B Complex) 1 each PO DAILY [facility] Last Admin: 04/07/17 08:26 Dose: 1 each Warfarin Sodium (Coumadin) 2.5 mg PO SUTUWETHFRSA@2000 [facility] Warfarin Sodium (Coumadin) 5 mg PO MO@2000 [facility] Discontinued Medications Hydrocodone Bitart/Acetaminophen ([place] 325-5 Mg) 1 tab PO ONETIME ONE Stop: 04/06/17 14:48 Last Admin: 04/06/17 15:06 Dose: 1 tab Enoxaparin Sodium (Lovenox) 40 mg SUBCUT Q12H [facility] Last Admin: 04/07/17 08:24 Dose: 40 mg Potassium Chloride (Klor-Con 10) 10 meq PO BIDMEALS [facility] Last Admin: 04/07/17 08:26 Dose: 10 meq Warfarin Sodium (Coumadin) 2.5 mg PO SuTuWeThFrSa@1200 [facility] Last Admin: 04/06/17 19:34 Dose: 2.5 mg Warfarin Sodium (Coumadin) 5 mg PO Mo@1200 [facility] - Problem List Review Problem List Initiated/Reviewed/Updated: Yes - My Orders Last 24 Hours: My Active Orders 04/06/17 18:16 Oxygen Therapy [RC] .PRN Vital Signs [RC] 0000,0400,0800,1200,1600,1999 Acetaminophen/HYDROcodone [[place] 325-5 MG] 2 tab PO Q4H PRN Ondansetron [Zofran ODT] 4 mg PO Q4H PRN Resuscitation Status Routine 04/06/17 18:21 Cardiac Monitoring [RC] 0800,199904/06/17 18:28 Acetaminophen/HYDROcodone [[place] 325-5 MG] 1 tab PO Q4H PRN Furosemide [Lasix] 40 mg PO DAILY PRN 04/06/17 18:52 hydrOXYzine HCl [Atarax] 25 mg PO TID PRN 04/06/17 20:00 Calcium/Magnesium/Zinc [Calcium & Magnesium plus Zinc] 1 tab PO BID Cephalexin [Keflex] 250 mg PO BID Metoprolol Tartrate [Lopressor] 25 mg PO BID 04/06/17 20:28 Antiembolic Devices [RC] 1000,2200 ILEANA Hose [Antiembolic Hose] [OM.PC] Routine 04/06/17 Dinner 2 Gram Sodium Diet [DIET] 04/07/17 05:11 EKG 12 Lead [EK] AM 04/07/17 08:00 Cholecalciferol (Vitamin D3) [Vitamin D3] 5,000 units PO DAILY Docusate Sodium [Colace] 200 mg PO DAILY Lutein [Lutein] 20 mg PO DAILY Oxybutynin [Oxybutynin ER] 10 mg PO DAILY Vitamin B Complex 1 each PO DAILY 04/07/17 12:22 Potassium Chloride [Klor-Con 10] 20 meq PO BIDMEALS 04/07/17 12:24 Intake and Output [RC] QSHIFT 04/07/17 20:00 Warfarin [Coumadin] 2.5 mg PO SUTUWETHFRSA@199904/08/17 20:00 Warfarin [Coumadin] 5 mg PO MO@199904/09/17 12:22 CBC WITH AUTO DIFF [HEME] Routine CMP [COMPREHENSIVE METABOLIC PN,CMP] [CHEM] Routine
[2017-04-07] MEDS ORDERED: Warfarin 5 MG Tab PO SCH (20:00)
[2017-04-08] MEDS: Acetaminophen/HYDROcodone 325-5 MG Tab PO PRN ×4 (01:08→19:59)
[2017-04-08] MEDS: Cholecalciferol (Vitamin D3) 1,000 Unit Tab PO SCH (08:24)
[2017-04-08] MEDS: Metoprolol Tartrate 25 MG Tab PO SCH ×2 (08:25→19:59)
[2017-04-08] MEDS: Potassium Chloride 10 MEQ Tab.ER PO SCH ×2 (08:25→17:44)
[2017-04-08] MEDS: Calcium Carbonate/Magnesium Oxide/Zinc Oxide Tab PO SCH ×2 (08:25→19:58)
[2017-04-08] MEDS: Oxybutynin 5 MG Tab.ER PO SCH (08:25)
[2017-04-08] MEDS: Vitamin B Complex Cap PO SCH (08:25)
[2017-04-08] MEDS: Docusate Sodium 100 MG Cap PO SCH (08:25)
[2017-04-08] MEDS: Cephalexin 250 MG Cap PO SCH ×2 (08:25→19:58)
[2017-04-08] MEDS ORDERED: Warfarin 5 MG Tab PO SCH ×2 (12:00→20:00)
--- NOTE | 2017-04-08 12:09 | PCM.PN ---
- General Info Date of Service: 04/08/17 Admission Dx/Problem (Free Text): Lying in bed resting, visiting with family. Denies any pain at this time, but states she has some sob at times. Spoke at length about her future. She is not sure that she still wants to persue half-way placement but still wants to transfer to swing bed for rehab for awhile. Family is tryig to encourage her to consider an upgrade in her care, as her 89 yo is unable to care for her at home. Will consult social worker aide to talk with her this wee to discuss options for the near and penitentiary future. Functional Status: Reports: pain controlled - Review of Systems General: Reports: No Symptoms HEENT: Reports: no symptoms Pulmonary: Reports: shortness of breath Cardiovascular: Reports: No Symptoms Gastrointestinal: Reports: No symptoms Genitourinary: Reports: no symptoms Musculoskeletal: Reports: no symptoms Skin: Reports: no symptoms Neurological: Reports: No Symptoms Psychiatric: Reports: no symptoms - Patient Data Vitals - most recent: Last Vital Signs Temp 98.0 F 04/08/17 08:00 Pulse 70 04/08/17 08:25 Resp 20 04/08/17 08:00 BP 170/74 H 04/08/17 08:25 Pulse Ox 93 L 04/08/17 08:00 Weight - most recent: 140 lb I&O - last 24 hours: Intake & Output 04/07/17 04/08/17 04/08/17 22:59 06:59 14:59 Intake Total 500 400 Output Total 200 200 Balance 300 200 Med Orders - Current: Current Medications Hydrocodone Bitart/Acetaminophen ([place] 325-5 Mg) 2 tab PO Q4H PRN PRN Reason: Pain (moderate 4-6) Last Admin: 04/08/17 01:08 Dose: 2 tab Hydrocodone Bitart/Acetaminophen ([place] 325-5 Mg) 1 tab PO Q4H PRN PRN Reason: Pain Last Admin: 04/08/17 08:29 Dose: 1 tab Calcium/Magnesium/Zinc (Calcium & Magnesium Plus Zinc) 1 tab PO BID [facility] Last Admin: 04/08/17 08:25 Dose: 1 tab Cephalexin (Keflex) 250 mg PO BID [facility] Last Admin: 04/08/17 08:25 Dose: 250 mg Cholecalciferol (Vitamin D3) 5,000 units PO DAILY [facility] Last Admin: 04/08/17 08:24 Dose: 5,000 units Docusate Sodium (Colace) 200 mg PO DAILY [facility] Last Admin: 04/08/17 08:25 Dose: 200 mg Furosemide (Lasix) 40 mg PO DAILY PRN PRN Reason: Edema Hydroxyzine HCl (Atarax) 25 mg PO TID PRN PRN Reason: Itching Metoprolol Tartrate (Lopressor) 25 mg PO BID [facility] Last Admin: 04/08/17 08:25 Dose: 25 mg Non-Formulary Medication (Lutein [Lutein]) 20 mg PO DAILY [facility] Ondansetron HCl (Zofran Odt) 4 mg PO Q4H PRN PRN Reason: nausea, able to take PO Oxybutynin Chloride (Oxybutynin Er) 10 mg PO DAILY [facility] Last Admin: 04/08/17 08:25 Dose: 10 mg Potassium Chloride (Klor-Con 10) 20 meq PO BIDMEALS [facility] Last Admin: 04/08/17 08:25 Dose: 20 meq Vitamin B Complex (Vitamin B Complex) 1 each PO DAILY [facility] Last Admin: 04/08/17 08:25 Dose: 1 each Warfarin Sodium (Coumadin) 2.5 mg PO SUTUWETHFRSA@2000 [facility] Last Admin: 04/07/17 19:52 Dose: 2.5 mg Warfarin Sodium (Coumadin) 5 mg PO MO@2000 [facility] Discontinued Medications Hydrocodone Bitart/Acetaminophen ([place] 325-5 Mg) 1 tab PO ONETIME ONE Stop: 04/06/17 14:48 Last Admin: 04/06/17 15:06 Dose: 1 tab Enoxaparin Sodium (Lovenox) 40 mg SUBCUT Q12H [facility] Last Admin: 04/07/17 08:24 Dose: 40 mg Potassium Chloride (Klor-Con 10) 10 meq PO BIDMEALS [facility] Last Admin: 04/07/17 08:26 Dose: 10 meq Warfarin Sodium (Coumadin) 2.5 mg PO SuTuWeThFrSa@1200 [facility] Last Admin: 04/06/17 19:34 Dose: 2.5 mg Warfarin Sodium (Coumadin) 5 mg PO Mo@1200 [facility] - Problem List Review Problem List Initiated/Reviewed/Updated: Yes - My Orders Last 24 Hours: My Active Orders 04/07/17 12:22 Potassium Chloride [Klor-Con 10] 20 meq PO BIDMEALS 04/07/17 12:24 Intake and Output [RC] 0600,1800 04/07/17 20:00 Warfarin [Coumadin] 2.5 mg PO SUTUWETHFRSA@199904/08/17 12:02 Consult to Child Care Leader [CONS] Routine 04/08/17 20:00 Warfarin [Coumadin] 5 mg PO MO@199904/09/17 12:22 CBC WITH AUTO DIFF [HEME] Routine CMP [COMPREHENSIVE METABOLIC PN,CMP] [CHEM] Routine
[2017-04-08] MEDS: Non-Formulary Medication 1 Each (Lutein [Lutein] 20 MG) PO SCH ×2 (13:53→13:54)
[2017-04-09] MEDS: Acetaminophen/HYDROcodone 325-5 MG Tab PO PRN ×3 (02:07→11:27)
[2017-04-09] MEDS: Cephalexin 250 MG Cap PO SCH (08:27)
[2017-04-09] MEDS: Potassium Chloride 10 MEQ Tab.ER PO SCH (08:27)
[2017-04-09] MEDS: Docusate Sodium 100 MG Cap PO SCH (08:27)
[2017-04-09] MEDS: Cholecalciferol (Vitamin D3) 1,000 Unit Tab PO SCH (08:27)
[2017-04-09] MEDS: Oxybutynin 5 MG Tab.ER PO SCH (08:27)
[2017-04-09] MEDS: Vitamin B Complex Cap PO SCH (08:27)
[2017-04-09] MEDS: Calcium Carbonate/Magnesium Oxide/Zinc Oxide Tab PO SCH (08:27)
[2017-04-09] MEDS: Metoprolol Tartrate 25 MG Tab PO SCH (08:30)
[2017-04-09 08:31] VITALS: BP 206/75
--- NOTE | 2017-04-09 10:38 | PN ---
DATE: 04/09/2017 S: Chas Waterman is in with a subendocardial infarct. She came in with a chest pain. O: NECK: Supple. CHEST: Clear. CARDIAC: Regular. ASSESSMENT: SUBENDOCARDIAL INFARCT. P: I am going to talk to her mergers and acquisitions consultant today to see if he is willing to do an angiogram. RAHUL/DARSHANA /[id number]
--- NOTE | 2017-04-10 07:46 | DISCH ---
HOSPITAL COURSE: Chas Waterman is an elderly white female, who was brought in by ambulance yesterday with chest pain. Troponins were elevated up at 0.102. They are down to 0.021 today. EKG showed just sinus bradycardia, no acute changes. Chest pain was relieved by nitro and by oxygen supplementation here. Panel-8 looked good and then creatinines were elevated at 2.4. They did drop down to 2.2, which she has chronically had. CBC; hemoglobin was on admission 9.5, went up to 10.1. INRs were adequate for her paroxysmal atrial fibrillation. Due to the fact she had persistent chest pain with arm pain, I did get hold of a gis manager in [place] and he agreed to take her in transfer. DISPOSITION: The patient now discharged to [facility], probable angiogram. DISCHARGE MEDICATIONS: As per chart. DISCHARGE DIAGNOSIS: 1. SUBENDOCARDIAL INFARCT. 2. ACUTE ON CHRONIC RENAL INSUFFICIENCY. 3. ANEMIA OF CHRONIC DISEASE. 4. CHRONIC URINARY TRACT INFECTIONS. 5. HYPERTENSION. 6. HYPERLIPIDEMIA. RAHUL/DARSHANA /[id number]
== END 2017-04-09 12:20 | DRG 282 ==
LOC: CC.ED 11:39 → CC.MS 17:30 → UNDOADMIN 17:30 → CC.MS 18:16 → UNDODISIN 04-09 12:20
PROVIDERS: ADMIT Nurse Practitioner Family; ATTEND General Practice
DX: I21.3 ST elevation (STEMI) myocardial infarction of unspecified site (principal); E78.00 Pure hypercholesterolemia, unspecified; I10 Essential (primary) hypertension; I21.4 Non-ST elevation (NSTEMI) myocardial infarction; M06.9 Rheumatoid arthritis, unspecified; I12.9 Hypertensive chronic kidney disease with stage 1 through stage 4 chronic kidney disease, or unspecified chronic kidney disease; N18.9 Chronic kidney disease, unspecified; D63.1 Anemia in chronic kidney disease; E78.5 Hyperlipidemia, unspecified; K21.9 Gastro-esophageal reflux disease without esophagitis; E55.9 Vitamin D deficiency, unspecified; Z88.8 Allergy status to other drugs, medicaments and biological substances; Z79.899 Other long term (current) drug therapy; Z86.718 Personal history of other venous thrombosis and embolism; Z79.01 Long term (current) use of anticoagulants
CPT/HCPCS: 36415; 71020; 80048; 81001; 82550; 83615; 84484 ×2; 85025; 85610; 85730; 93005; 93010; 99285; A9270; 80053; J1650

== ENCOUNTER 2018-12-22 15:02 | Observation (INO) | payer MEDICARE, OTHER ==
[2018-12-22] MEDS ORDERED: cefTRIAXone 1 GM Vial IVPUSH SCH (15:30)
[2018-12-22 15:56] LABS: CHLORIDE,CL 103 mEq/L (98-106); SODIUM,NA 139 mEq/L (136-145)
[2018-12-22] MEDS ORDERED: Azithromycin 500 MG in Sodium Chloride 0.9% 250 ML IV SCH (16:00)
[2018-12-22] MEDS ORDERED: Sodium Chloride 0.9% 10 ML Syringe FLUSH PRN (16:29)
[2018-12-22] MEDS ORDERED: Acetaminophen 325 MG Tab PO PRN (16:29)
[2018-12-22] MEDS ORDERED: Zolpidem 5 MG Tab PO PRN (16:29)
[2018-12-22] MEDS ORDERED: Atropine/Diphenoxylate 0.025-2.5 MG Tab PO PRN (17:47)
[2018-12-22] MEDS ORDERED: Furosemide 40 MG Tab PO PRN (17:47)
[2018-12-22] MEDS ORDERED: hydrOXYzine HCl 25 MG Tab PO PRN (17:47)
[2018-12-22] MEDS ORDERED: traMADol 50 MG Tab PO PRN (17:47)
[2018-12-22] MEDS: Enoxaparin 30 MG/0.3 ML Syringe SUBCUT SCH (18:15)
[2018-12-22] MEDS: Metoprolol Tartrate 25 MG Tab PO SCH (19:42)
[2018-12-22] MEDS: Albuterol/Ipratropium 3.0-0.5 MG/3 ML Neb Soln NEB SCH (19:42)
[2018-12-22] MEDS ORDERED: Levofloxacin/Dextrose 5%-Water 250 MG in Premix Bag 1 BAG IV SCH (20:00)
[2018-12-23] MEDS: Oxybutynin 5 MG Tab.ER PO SCH (08:12)
[2018-12-23] MEDS: Docusate Sodium 100 MG Cap PO SCH (08:12)
[2018-12-23] MEDS: Aspirin 81 MG Tab.Chew PO SCH (08:12)
[2018-12-23] MEDS: amLODIPine 2.5 MG Tab PO SCH (08:12)
[2018-12-23] MEDS: Metoprolol Tartrate 25 MG Tab PO SCH ×2 (08:13→19:50)
[2018-12-23] MEDS: atorvaSTATin 20 MG Tab PO SCH (08:13)
[2018-12-23] MEDS: Clopidogrel 75 MG Tab PO SCH (08:13)
[2018-12-23] MEDS: Albuterol/Ipratropium 3.0-0.5 MG/3 ML Neb Soln NEB SCH ×4 (08:13→21:11)
--- NOTE | 2018-12-23 10:56 | PCM.PN ---
- General Info Date of Service: 12/23/18 Admission Dx/Problem (Free Text): Pneumonia Functional Status: Reports: Pain Controlled, Tolerating Diet, Ambulating - Review of Systems General: Reports: Fever, Weakness HEENT: Reports: Post Nasal Drip, Rhinitis Pulmonary: Reports: Shortness of Breath, Cough, Sputum, Wheezing Cardiovascular: Denies: Chest Pain, Edema, Lightheadedness Gastrointestinal: Denies: Abdominal Pain, Nausea, Vomiting Genitourinary: Reports: No Symptoms Musculoskeletal: Reports: Back Pain Skin: Reports: No Symptoms Neurological: Reports: No Symptoms - Patient Data Vitals - Most Recent: Last Vital Signs Temp 99.8 F 12/23/18 08:00 Pulse 67 12/23/18 08:13 Resp 18 12/23/18 08:00 BP 98/50 L 12/23/18 08:13 Pulse Ox 97 12/23/18 08:00 Weight - Most Recent: 128 lb 11.2 oz Lab Results Last 24 Hours: Laboratory Results - last 24 hr 12/22/18 12/22/18 12/22/18 Range/Units 15:10 15:10 15:35 WBC 8.4 (5.0-10.0) 10^3/uL RBC 4.53 (4.00-5.50) 10^6/uL Hgb 12.6 (12.0-16.0) g/dL Hct 38.9 (37.0-47.0) % MCV 85.9 (82.0-94.0) fL MCH 27.8 (27.0-32.0) pg MCHC 32.4 L (33.0-38.0) g/dL RDW Coeff of Lakshmi 14.3 (11.0-15.0) % Plt Count 211 (150-400) 10^3/uL Neut % (Auto) 78.2 (35-85) % Lymph % (Auto) 11.7 (10-55) % [place] % (Auto) 8.4 (0-16) % Eos % (Auto) 1.5 (0-5) % Baso % (Auto) 0.2 (0-3) % Neut # (Auto) 6.57 (1.80-7.00) 10^3/uL Lymph # (Auto) 0.98 L (1.00-4.80) 10^3/uL [place] # (Auto) 0.71 (0.00-0.80) 10^3/uL Eos # (Auto) 0.13 (0.00-0.45) 10^3/uL Baso # (Auto) 0.02 10^3/uL Sodium 139 (136-145) mEq/L Potassium 4.7 (3.5-5.0) mEq/L Chloride 103 (98-106) mEq/L Carbon Dioxide 25 (21-32) mmol/L BUN 40 H (7-18) mg/dL Creatinine 1.4 H (0.6-1.0) mg/dL Est Cr Clr Drug Dosing TNP Estimated GFR (MDRD) 36 L (>=60) mL/min Glucose 118 H (75-99) mg/dL Calcium 9.3 (8.4-10.1) mg/dL Total Bilirubin 0.4 (0.0-1.0) mg/dL AST 24 (15-37) U/L ALT 26 (12-78) U/L Alkaline Phosphatase 109 (46-116) U/L C-Reactive Protein 8.5 H (0.2-0.8) mg/dL NT-Pro-B Natriuret Pep 933 (0-1000) pg/mL Total Protein 7.0 (6.4-8.2) g/dL Albumin 3.9 (3.4-5.0) g/dL Urine Color Yellow (YELLOW) Urine Appearance Clear (CLEAR) Urine pH 5.5 (4.5-8.0) Ur Specific [place] 1.015 (1.003-1.020) Urine Protein Negative (NEGATIVE) mg/dL Urine Glucose (UA) Negative (NEGATIVE) mg/dL Urine Ketones 15 H (NEGATIVE) mg/dL Urine Occult Blood Negative (NEGATIVE) Urine Nitrite Negative (NEGATIVE) Urine Bilirubin Negative (NEGATIVE) Urine Urobilinogen 0.2 (0.2-1.0) EU/dL Ur Leukocyte Esterase Negative (NEGATIVE) [place] Results Last 24 Hours: Microbiology 12/22/18 15:10 Gram Stain - Preliminary Sputum - Expectorated 12/22/18 16:44 Influenza Type A Antigen Screen - Final Nasopharyngeal Swab NEGATIVE INFLUENZA A VIRUS AG Influenza Type B Antigen Screen - Final NEGATIVE INFLUENZA B VIRUS AG Med Orders - Current: Current Medications Acetaminophen (Tylenol) 650 mg PO Q4H PRN PRN Reason: Pain (Mild 1-3)/fever Last Admin: 12/23/18 08:16 Dose: 650 mg Albuterol/Ipratropium (Duoneb 3.0-0.5 Mg/3 Ml) 3 ml NEB QIDRT [facility] Last Admin: 12/23/18 08:13 Dose: 3 ml Amlodipine Besylate (Norvasc) 5 mg PO DAILY [facility] Last Admin: 12/23/18 08:12 Dose: 5 mg Aspirin (Aspirin) 81 mg PO DAILY [facility] Last Admin: 12/23/18 08:12 Dose: 81 mg Atorvastatin Calcium (Lipitor) 20 mg PO DAILY [facility] Last Admin: 12/23/18 08:13 Dose: 20 mg Clopidogrel Bisulfate (Plavix) 75 mg PO DAILY [facility] Last Admin: 12/23/18 08:13 Dose: 75 mg Diphenoxylate HCl/Atropine (Lomotil 0.025-2.5 Mg) 2 tab PO BID PRN PRN Reason: Other Docusate Sodium (Colace) 200 mg PO DAILY [facility] Last Admin: 12/23/18 08:12 Dose: 200 mg Enoxaparin Sodium (Lovenox) 30 mg SUBCUT 1600 [facility] Last Admin: 12/22/18 18:15 Dose: 30 mg Furosemide (Lasix) 40 mg PO DAILY PRN PRN Reason: Edema Hydroxyzine HCl (Atarax) 25 mg PO TID PRN PRN Reason: Itching Azithromycin 500 mg/ Sodium (Chloride) 250 mls @ 250 mls/hr IV 1600 [facility] Magnesium Oxide (Magnesium Oxide) 250 mg PO DAILY [facility] Last Admin: 12/23/18 08:12 Dose: 250 mg Metoprolol Tartrate (Lopressor) 25 mg PO BID [facility] Last Admin: 12/23/18 08:13 Dose: 25 mg Oxybutynin Chloride (Oxybutynin Er) 10 mg PO DAILY [facility] Last Admin: 12/23/18 08:12 Dose: 10 mg Sodium Chloride (Saline Flush) 10 ml FLUSH ASDIRECTED PRN PRN Reason: Keep Vein Open Tramadol HCl (Ultram) 50 mg PO QID PRN PRN Reason: Pain Zolpidem Tartrate (Ambien) 5 mg PO BEDTIME PRN PRN Reason: Sleep Discontinued Medications Ceftriaxone Sodium (Rocephin) 1 gm IVPUSH Q24H [facility] Last Admin: 12/22/18 16:00 Dose: Not Given Azithromycin 500 mg/ Sodium (Chloride) 250 mls @ 250 mls/hr IV 1600 [facility] Last Admin: 12/22/18 15:49 Dose: 250 mls/hr Levofloxacin/Dextrose 250 mg/ (Premix) 50 mls @ 50 mls/hr IV 2000 [facility] - Exam General: Alert, Oriented HEENT: Mucous Membr. Moist/[place] Neck: Supple Lungs: Decreased Breath Sounds, Wheezing Cardiovascular: Regular Rate, Regular Rhythm, Murmurs GI/Abdominal Exam: Normal Bowel Sounds, Soft, Non-Tender Extremities: Normal Inspection, No Pedal Edema - Problem List & Annotations (1) Bronchitis SNOMED Code(s): 26995236 Code(s): J40 - BRONCHITIS, NOT SPECIFIED ACUTE OR CHRONIC Status: Acute Priority: High Current Visit: Yes - Problem List Review Problem List Initiated/Reviewed/Updated: Yes - My Orders Last 24 Hours: My Active Orders 12/23/18 16:00 Azithromycin [Zithromax] 500 mg Sodium Chloride 0.9% [Normal Saline] 250 ml IV 1600 - Assessment Assessment:: Acute Bronchitis - Plan Plan:: Patient is feeling better today. Does still have frequent cough with thick production. Feels she is breathing easier today. Does get more short of breath with exertion. Lung sounds note less wheezing. Labs are stable, WBC normal on admit at 8.4. CRP 8.5. Chest xray essentially clear. Encourage ambulation today. Continue IV Zithromax. Neb treatments. Probable discharge in am.
[2018-12-23] MEDS ORDERED: Azithromycin 500 MG in Sodium Chloride 0.9% 250 ML IV SCH (16:00)
[2018-12-23] MEDS: Enoxaparin 30 MG/0.3 ML Syringe SUBCUT SCH (16:27)
[2018-12-24] MEDS: Docusate Sodium 100 MG Cap PO SCH ×2 (08:27→08:30)
[2018-12-24] MEDS: Aspirin 81 MG Tab.Chew PO SCH (08:27)
[2018-12-24] MEDS: atorvaSTATin 20 MG Tab PO SCH (08:27)
[2018-12-24] MEDS: Metoprolol Tartrate 25 MG Tab PO SCH (08:28)
[2018-12-24] MEDS: Albuterol/Ipratropium 3.0-0.5 MG/3 ML Neb Soln NEB SCH ×4 (08:28→12:31)
[2018-12-24] MEDS: Oxybutynin 5 MG Tab.ER PO SCH (08:28)
[2018-12-24] MEDS: Clopidogrel 75 MG Tab PO SCH (08:28)
[2018-12-24] MEDS: amLODIPine 2.5 MG Tab PO SCH (08:29)
[2018-12-24] MEDS ORDERED: Azithromycin 500 MG Vial ONE (09:13)
[2018-12-24 13:16] VITALS: BP 109/55
[2018-12-25] MEDS ORDERED: Azithromycin 500 MG in Sodium Chloride 0.9% 250 ML IV SCH (08:00)
--- NOTE | 2018-12-28 18:12 | PCM.DCSUM1 ---
Discharge Summary - Hospital Course Free Text/Narrative:: Patient presented to clinic to see Dr. Villalobos for increased productive cough, runny nose and headache. Lung sounds noted to have crackles in the bases, concerning for pneumonia. Orders submitted on admit for chest xray, labs. Started on Rocephin and Zithromax and nebs. Diagnosis: Stroke: No Modified Patrice Scale: No Symptoms at All Modified [place] Scale Score: 0 - Discharge Data Discharge Date: 12/24/18 Discharge Disposition: Home, Self-Care 01 Condition: Good - Discharge Diagnosis/Problem(s) (1) Bronchitis SNOMED Code(s): 31421819 ICD Code: J40 - BRONCHITIS, NOT SPECIFIED ACUTE OR CHRONIC Status: Acute Priority: High - Patient Summary/Data Complications: none Hospital Course: Patient has done well during hospitalization. Initial WBC within normal range at 8, CRP elevated at 8. Chest xray was clear, pneumonia ruled out. Continued to receive IV Rocephin and Zithromax for bronchitis. Lung sounds now clear. No further wheezing or crackles. Afebrile. Tolerating activity. Does feel more restless after nebs but overall able to tolerate. - Patient Instructions Diet: Usual Diet as Tolerated Activity: As Tolerated - Discharge Plan *PRESCRIPTION DRUG MONITORING PROGRAM REVIEWED*: No *COPY OF PRESCRIPTION DRUG MONITORING REPORT IN PATIENT GEORGE: No Prescriptions/Med Rec: Albuterol/Ipratropium [DuoNeb 3.0-0.5 MG/3 ML] 3 ml NEB QIDRT #28 neb Home Medications: Home Meds Furosemide [Lasix] 40 mg PO DAILY PRN 03/05/14 [History] Oxybutynin Chloride [Oxybutynin Chloride ER] 10 mg PO DAILY 03/05/14 [History] José Miguel Cit/Mag/D3/Zn/Oncology Physician/Srinivas/Bor [Citracal-Vit D + Magnesium] 1 tab PO BID [History] Vitamin B Complex 1 cap PO DAILY 07/26/16 [History] hydrOXYzine pamoate [Hydroxyzine Pamoate] 25 mg PO TID PRN 07/26/16 [History] Cholecalciferol (Vitamin D3) [Vitamin D] 5,000 unit PO DAILY 04/02/17 [History] Docusate Sodium [Stool Softener] 200 mg PO DAILY 04/02/17 [History] Metoprolol Tartrate 25 mg PO BID 04/02/17 [History] traMADol HCl [Tramadol HCl] 50 mg PO QID PRN 04/02/17 [History] Ascorbic Acid [Vitamin C] 1 tab PO DAILY 12/22/18 [History] Aspirin 81 mg PO DAILY 12/22/18 [History] Clopidogrel [Plavix] 1 tab PO DAILY 12/22/18 [History] Cranberry 1 tab PO DAILY 12/22/18 [History] Diphenoxylate HCl/Atropine [Diphenoxylate-Atrop 2.5-0.025] 2 tab PO BID PRN 09/29 [History] Lutein/Minerals/Vit A,C & E [Ocuvite] 1 tab PO DAILY 12/22/18 [History] Magnesium 400 mg PO DAILY 12/22/18 [History] Multivitamin [Multivitamins] 1 tab PO DAILY 12/22/18 [History] amLODIPine [Norvasc] 5 mg PO DAILY 12/22/18 [History] atorvaSTATin Calcium [Atorvastatin Calcium] 20 mg PO DAILY 12/22/18 [History] Albuterol/Ipratropium [DuoNeb 3.0-0.5 MG/3 ML] 3 ml NEB QIDRT #28 neb 12/24/18 [ Rx] Patient Handouts: Upper Respiratory Infection, Adult Referrals: Paul Villalobos MD [Primary Care Provider] - (Follow up with Dr. Villalobos in one week) - Discharge Summary/Plan Comment DC Time >30 min.: No - General Info Date of Service: 12/24/18 Admission Dx/Problem (Free Text: Pneumonia Functional Status: Reports: Pain Controlled, Tolerating Diet, Ambulating - Review of Systems General: Reports: Fever, Weakness, Fatigue HEENT: Reports: No Symptoms Pulmonary: Reports: Cough. Denies: Shortness of Breath, Wheezing Cardiovascular: Denies: Chest Pain, Lightheadedness Gastrointestinal: Denies: Abdominal Pain, Nausea, Vomiting Genitourinary: Reports: No Symptoms Musculoskeletal: Reports: No Symptoms Skin: Reports: No Symptoms Neurological: Reports: No Symptoms - Patient Data Vitals - Most Recent: Last Vital Signs Temp 98.9 F 12/24/18 12:00 Pulse 85 12/24/18 12:00 Resp 18 12/24/18 12:00 BP 109/55 L 12/24/18 12:00 Pulse Ox 99 12/24/18 12:00 Weight - Most Recent: 128 lb 11.2 oz MYRANDA Results - Last 24 hrs: Microbiology 12/22/18 15:35 Aerobic Blood Culture - Final Blood - Venous - Lab Draw NO GROWTH AFTER 5 DAYS Anaerobic Blood Culture - Final NO GROWTH AFTER 5 DAYS 12/22/18 15:30 Aerobic Blood Culture - Final Blood - Venous NO GROWTH AFTER 5 DAYS Anaerobic Blood Culture - Final NO GROWTH AFTER 5 DAYS Med Orders - Current: Current Medications Discontinued Medications Acetaminophen (Tylenol) 650 mg PO Q4H PRN PRN Reason: Pain (Mild 1-3)/fever Last Admin: 12/23/18 08:16 Dose: 650 mg Albuterol/Ipratropium (Duoneb 3.0-0.5 Mg/3 Ml) 3 ml NEB QIDRT [facility] Last Admin: 12/24/18 12:31 Dose: 3 ml Amlodipine Besylate (Norvasc) 5 mg PO DAILY [facility] Last Admin: 12/24/18 08:29 Dose: 5 mg Aspirin (Aspirin) 81 mg PO DAILY [facility] Last Admin: 12/24/18 08:27 Dose: 81 mg Atorvastatin Calcium (Lipitor) 20 mg PO DAILY [facility] Last Admin: 12/24/18 08:27 Dose: 20 mg Azithromycin (Zithromax) Confirm Administered Dose 500 mg .ROUTE .STK-MED ONE Stop: 12/24/18 09:14 Last Admin: 12/24/18 12:31 Dose: 500 mg Ceftriaxone Sodium (Rocephin) 1 gm IVPUSH Q24H [facility] Last Admin: 12/22/18 16:00 Dose: Not Given Clopidogrel Bisulfate (Plavix) 75 mg PO DAILY [facility] Last Admin: 12/24/18 08:28 Dose: 75 mg Diphenoxylate HCl/Atropine (Lomotil 0.025-2.5 Mg) 2 tab PO BID PRN PRN Reason: Other Docusate Sodium (Colace) 200 mg PO DAILY [facility] Last Admin: 12/24/18 08:30 Dose: Not Given Enoxaparin Sodium (Lovenox) 30 mg SUBCUT 1600 [facility] Last Admin: 12/23/18 16:27 Dose: 30 mg Furosemide (Lasix) 40 mg PO DAILY PRN PRN Reason: Edema Hydroxyzine HCl (Atarax) 25 mg PO TID PRN PRN Reason: Itching Azithromycin 500 mg/ Sodium (Chloride) 250 mls @ 250 mls/hr IV 1600 [facility] Last Admin: 12/22/18 15:49 Dose: 250 mls/hr Levofloxacin/Dextrose 250 mg/ (Premix) 50 mls @ 50 mls/hr IV 2000 [facility] Azithromycin 500 mg/ Sodium (Chloride) 250 mls @ 250 mls/hr IV 1600 [facility] Last Admin: 12/23/18 16:28 Dose: 250 mls/hr Azithromycin 500 mg/ Sodium (Chloride) 250 mls @ 250 mls/hr IV 0800 [facility] Magnesium Oxide (Magnesium Oxide) 250 mg PO DAILY [facility] Last Admin: 12/24/18 08:28 Dose: 250 mg Metoprolol Tartrate (Lopressor) 25 mg PO BID [facility] Last Admin: 12/24/18 08:28 Dose: 25 mg Oxybutynin Chloride (Oxybutynin Er) 10 mg PO DAILY [facility] Last Admin: 12/24/18 08:28 Dose: 10 mg Sodium Chloride (Saline Flush) 10 ml FLUSH ASDIRECTED PRN PRN Reason: Keep Vein Open Tramadol HCl (Ultram) 50 mg PO QID PRN PRN Reason: Pain Zolpidem Tartrate (Ambien) 5 mg PO BEDTIME PRN PRN Reason: Sleep - Exam General: Reports: Alert, Oriented HEENT: Reports: Mucous Membr. Moist/[place] Neck: Reports: Supple Lungs: Reports: Clear to Auscultation, Normal Respiratory Effort Cardiovascular: Reports: Regular Rate, Regular Rhythm GI/Abdominal Exam: Normal Bowel Sounds, Soft, Non-Tender Extremities: Normal Inspection, No Pedal Edema Skin: Reports: Warm, Dry Neurological: Reports: No New Focal Deficit
== END 2018-12-24 14:40 | disposition home or self-care (01) ==
LOC: UNDOADMIN 15:02 → CC.MS 15:02 → INTOOBSV 16:29
PROVIDERS: ADMIT Family Medicine; ATTEND Family Medicine
DX: J20.9 Acute bronchitis, unspecified (principal); Z79.82 Long term (current) use of aspirin; Z79.899 Other long term (current) drug therapy; I48.91 Unspecified atrial fibrillation; I25.10 Atherosclerotic heart disease of native coronary artery without angina pectoris; I10 Essential (primary) hypertension; K21.9 Gastro-esophageal reflux disease without esophagitis; E78.00 Pure hypercholesterolemia, unspecified; M60.9 Myositis, unspecified; Z88.0 Allergy status to penicillin; Z88.2 Allergy status to sulfonamides; Z88.5 Allergy status to narcotic agent; Z88.8 Allergy status to other drugs, medicaments and biological substances
CPT/HCPCS: 36415; 71046; 80053; 81003; 83880; 85025; 86140; 87040; 87070; 87077; 87186; 87205; 87804; 94640; 96365; 96366; 96372; A9270-GY; G0378; J0456; J1650; J7050; J7620-GY

== ENCOUNTER 2019-07-14 16:28 | Inpatient (IN) | payer MEDICARE, OTHER ==
[2019-07-14 17:03] LABS: CHLORIDE,CL 106 mEq/L (98-106); SODIUM,NA 140 mEq/L (136-145)
[2019-07-14] MEDS ORDERED: Ondansetron 4 MG Tab.DIS PO PRN (17:33)
[2019-07-14] MEDS ORDERED: Furosemide 40 MG Tab PO PRN (17:35)
[2019-07-14] MEDS ORDERED: traMADol 50 MG Tab PO PRN (17:35)
[2019-07-14] MEDS ORDERED: Docusate Sodium 100 MG Cap PO PRN (17:35)
[2019-07-14] MEDS ORDERED: hydrOXYzine HCl 25 MG Tab PO PRN (17:35)
[2019-07-14] MEDS: Sodium Chloride 0.9% 1,000 ML IV SCH (18:52)
[2019-07-15] MEDS: Acetaminophen 325 MG Tab PO PRN (00:15)
[2019-07-15] MEDS: Clopidogrel 75 MG Tab PO SCH (07:55)
[2019-07-15] MEDS: Oxybutynin 5 MG Tab.ER PO SCH (07:55)
[2019-07-15] MEDS: Aspirin 81 MG Tab.EC PO SCH (07:55)
[2019-07-15] MEDS: Sodium Chloride 0.9% 1,000 ML IV SCH ×2 (14:24→21:15)
--- NOTE | 2019-07-15 19:23 | PCM.PN ---
- General Info Date of Service: 07/15/19 Admission Dx/Problem (Free Text): Syncope Functional Status: Reports: Pain Controlled, Tolerating Diet, Ambulating - Review of Systems General: Reports: Weakness, Fatigue, Malaise HEENT: Denies: Ear Pain, Headaches, Sinus Congestion Pulmonary: Denies: Shortness of Breath, Cough Cardiovascular: Reports: Lightheadedness. Denies: Chest Pain, Edema Gastrointestinal: Denies: Abdominal Pain, Nausea, Vomiting Genitourinary: Reports: No Symptoms Musculoskeletal: Reports: Leg Pain Skin: Reports: Bruising Neurological: Reports: Weakness - Patient Data Vitals - Most Recent: Last Vital Signs Temp 98.6 F 07/15/19 16:00 Pulse 70 07/15/19 16:00 Resp 20 07/15/19 16:00 BP 111/29 L 07/15/19 16:00 Pulse Ox 100 07/15/19 16:00 Weight - Most Recent: 122 lb 6.4 oz I&O - Last 24 Hours: Intake & Output 07/15/19 07/15/19 07/15/19 06:59 14:59 22:59 Intake Total 977 Balance 977 Lab Results Last 24 Hours: Laboratory Results - last 24 hr 07/14/19 07/15/19 Range/Units 16:31 07:00 Creatine Kinase 25 (21-215) U/L Troponin I < 0.017 (0.00-0.06) ng/mL Urine Color Yellow (YELLOW) Urine Appearance Clear (CLEAR) Urine pH 6.0 (4.5-8.0) Ur Specific Jeremiah 1.015 (1.003-1.020) Urine Protein Negative (NEGATIVE) mg/dL Urine Glucose (UA) Negative (NEGATIVE) mg/dL Urine Ketones Negative (NEGATIVE) mg/dL Urine Occult Blood Negative (NEGATIVE) Urine Nitrite Negative (NEGATIVE) Urine Bilirubin Negative (NEGATIVE) Urine Urobilinogen 0.2 (0.2-1.0) EU/dL Ur Leukocyte Esterase Trace H (NEGATIVE) Urine RBC Not seen (0-5) /HPF Urine WBC 0-5 (0-5) /HPF Urinalysis Comment Med Orders - Current: Current Medications Acetaminophen (Tylenol) 650 mg PO Q4H PRN PRN Reason: Pain (Mild 1-3)/fever Last Admin: 07/15/19 00:15 Dose: 650 mg Aspirin (Halfprin) [address] [facility] Last Admin: 07/15/19 07:55 Dose: 81 mg Atorvastatin Calcium (Lipitor) [address] [facility] Clopidogrel Bisulfate (Plavix) [address] [facility] Last Admin: 07/15/19 07:55 Dose: 75 mg Docusate Sodium (Colace) 200 mg PO DAILY PRN PRN Reason: Constipation Furosemide (Lasix) 40 mg PO DAILY PRN PRN Reason: Edema Hydroxyzine HCl (Atarax) 25 mg PO TID PRN PRN Reason: Itching Sodium Chloride (Normal Saline) 1,000 mls @ 50 mls/hr IV ASDIRECTED [facility] Last Admin: 07/15/19 14:24 Dose: 50 mls/hr Magnesium Oxide (Magnesium Oxide) [address] [facility] Last Admin: 07/15/19 07:56 Dose: 500 mg Ondansetron HCl (Zofran Odt) 4 mg PO Q4H PRN PRN Reason: nausea, able to take PO Oxybutynin Chloride (Oxybutynin Er) [address] [facility] Last Admin: 07/15/19 07:55 Dose: 10 mg Tramadol HCl (Ultram) 50 mg PO QID PRN PRN Reason: Pain - Exam General: Alert, Oriented HEENT: Mucous Membr. Moist/[place] Neck: Supple Lungs: Clear to Auscultation, Normal Respiratory Effort Cardiovascular: Regular Rate, Regular Rhythm GI/Abdominal Exam: Normal Bowel Sounds, Soft, Non-Tender Extremities: Other (left thigh hematoma) - Problem List & Annotations (1) Syncope SNOMED Code(s): 067466115 Code(s): R55 - SYNCOPE AND COLLAPSE Status: Acute Priority: High Current Visit: Yes Qualifiers: Encounter type: initial encounter (2) Weakness SNOMED Code(s): 11029266 Code(s): R53.1 - WEAKNESS Status: Acute Priority: High Current Visit: Yes - Problem List Review Problem List Initiated/Reviewed/Updated: Yes - Assessment Assessment:: Syncope Weakness - Plan Plan:: Patient admits to feeling weak, gets lightheaded at times. Has discomfort in left leg due to large amount of bruising. Bradycardia noted with rate of 58 during the night, blood pressure 89/35. Metoprolol has been held. Denies any chest pain or shortness of breath this am. Repeat troponin negative this am. UA normal. Obtain echo this am. continue to monitor telemetry. Hold Metoprolol. Continue IV fluids. Ambulate. Repeat labs in am.
[2019-07-15] MEDS: atorvaSTATin 20 MG Tab PO SCH (21:14)
[2019-07-16] MEDS: Aspirin 81 MG Tab.EC PO SCH (07:35)
[2019-07-16] MEDS: Oxybutynin 5 MG Tab.ER PO SCH (07:35)
[2019-07-16] MEDS: Clopidogrel 75 MG Tab PO SCH (07:35)
[2019-07-16 07:46] LABS: CHLORIDE,CL 111 mEq/L (98-106); SODIUM,NA 142 mEq/L (136-145)
[2019-07-16] MEDS: Pantoprazole 40 MG Vial IVPUSH SCH (11:25)
[2019-07-16] MEDS: atorvaSTATin 20 MG Tab PO SCH (19:57)
--- NOTE | 2019-07-16 20:15 | PCM.PN ---
- General Info Date of Service: 07/16/19 Admission Dx/Problem (Free Text): Syncope Functional Status: Reports: Pain Controlled, Tolerating Diet, Ambulating - Review of Systems General: Reports: Weakness, Fatigue, Malaise HEENT: Denies: Headaches Pulmonary: Denies: Shortness of Breath, Cough Cardiovascular: Reports: Edema. Denies: Chest Pain, Lightheadedness Gastrointestinal: Denies: Abdominal Pain, Nausea, Vomiting Genitourinary: Reports: No Symptoms Musculoskeletal: Reports: No Symptoms Skin: Reports: No Symptoms Neurological: Reports: No Symptoms - Patient Data Vitals - Most Recent: Last Vital Signs Temp 99 F 07/16/19 16:00 Pulse 88 07/16/19 12:00 Resp 18 07/16/19 16:00 BP 123/42 L 07/16/19 16:00 Pulse Ox 100 07/16/19 16:00 Weight - Most Recent: 122 lb 6.4 oz Lab Results Last 24 Hours: Laboratory Results - last 24 hr 07/16/19 07/16/19 Range/Units 07:00 07:00 WBC 5.3 (5.0-10.0) 10^3/uL RBC 3.19 L (4.00-5.50) 10^6/uL Hgb 8.7 L (12.0-16.0) g/dL Hct 27.4 L (37.0-47.0) % MCV 85.9 (82.0-94.0) fL MCH 27.3 (27.0-32.0) pg MCHC 31.8 L (33.0-38.0) g/dL RDW Coeff of Lakshmi 14.0 (11.0-15.0) % Plt Count 202 (150-400) 10^3/uL Neut % (Auto) 63.9 (35-85) % Lymph % (Auto) 18.5 (10-55) % [place] % (Auto) 10.4 (0-16) % Eos % (Auto) 6.8 H (0-5) % Baso % (Auto) 0.4 (0-3) % Neut # (Auto) 3.38 (1.80-7.00) 10^3/uL Lymph # (Auto) 0.98 L (1.00-4.80) 10^3/uL [place] # (Auto) 0.55 (0.00-0.80) 10^3/uL Eos # (Auto) 0.36 (0.00-0.45) 10^3/uL Baso # (Auto) 0.02 10^3/uL Sodium 142 (136-145) mEq/L Potassium 4.4 (3.5-5.0) mEq/L Chloride 111 H (98-106) mEq/L Carbon Dioxide 24 (21-32) mmol/L BUN 25 H D (7-18) mg/dL Creatinine 1.1 H (0.6-1.0) mg/dL Est Cr Clr Drug Dosing 29.57 mL/min Estimated GFR (MDRD) 47 L (>=60) mL/min Glucose 101 H D (75-99) mg/dL Calcium 8.6 (8.4-10.1) mg/dL C-Reactive Protein < 0.2 L (0.2-0.8) mg/dL Efliz Results Last 24 Hours: Microbiology 07/16/19 13:20 Occult Blood - Preliminary Stool / Feces Med Orders - Current: Current Medications Acetaminophen (Tylenol) 650 mg PO Q4H PRN PRN Reason: Pain (Mild 1-3)/fever Last Admin: 07/15/19 00:15 Dose: 650 mg Aspirin (Halfprin) 81 mg PO DAILY [facility] Last Admin: 07/16/19 07:35 Dose: 81 mg Atorvastatin Calcium (Lipitor) 20 mg PO BEDTIME [facility] Last Admin: 07/16/19 19:57 Dose: 20 mg Clopidogrel Bisulfate (Plavix) 75 mg PO DAILY [facility] Last Admin: 07/16/19 07:35 Dose: 75 mg Docusate Sodium (Colace) 200 mg PO DAILY PRN PRN Reason: Constipation Furosemide (Lasix) 40 mg PO DAILY PRN PRN Reason: Edema Hydroxyzine HCl (Atarax) 25 mg PO TID PRN PRN Reason: Itching Sodium Chloride (Normal Saline) 1,000 mls @ 50 mls/hr IV ASDIRECTED [facility] Last Admin: 07/15/19 21:15 Dose: 50 mls/hr Magnesium Oxide (Magnesium Oxide) 500 mg PO DAILY [facility] Last Admin: 07/16/19 07:32 Dose: 500 mg Ondansetron HCl (Zofran Odt) 4 mg PO Q4H PRN PRN Reason: nausea, able to take PO Oxybutynin Chloride (Oxybutynin Er) 10 mg PO DAILY [facility] Last Admin: 07/16/19 07:35 Dose: 10 mg Pantoprazole Sodium (Protonix Iv) 40 mg IVPUSH Q24H [facility] Last Admin: 07/16/19 11:25 Dose: 40 mg Tramadol HCl (Ultram) 50 mg PO QID PRN PRN Reason: Pain - Exam General: Alert, Oriented HEENT: Mucous Membr. 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) Skin: Warm, Dry, Ecchymosis Neurological: No New Focal Deficit - Problem List & Annotations (1) Syncope SNOMED Code(s): 142433820 Code(s): R55 - SYNCOPE AND COLLAPSE Status: Acute Priority: High Current Visit: Yes Qualifiers: Encounter type: initial encounter (2) Weakness SNOMED Code(s): 83427180 Code(s): R53.1 - WEAKNESS Status: Acute Priority: High Current Visit: Yes - Problem List Review Problem List Initiated/Reviewed/Updated: Yes - My Orders Last 24 Hours: My Active Orders 07/16/19 09:30 Pantoprazole [ProTONIX IV] 40 mg IVPUSH Q24H 07/16/19 10:30 IRON PNL (FE, TIBC, MIGUELINA, %SAT) [REF] Routine 07/16/19 13:20 OCCULT BLOOD SCREEN [OP] Routine - Assessment Assessment:: Syncope Weakness - Plan Plan:: Patient admits to feeling weak, gets lightheaded at times. Has discomfort in left leg due to large amount of bruising. Bradycardia noted with rate of 58 during the night, blood pressure 89/35. Metoprolol has been held. Denies any chest pain or shortness of breath this am. Repeat troponin negative this am. UA normal. Obtain echo this am. continue to monitor telemetry. Hold Metoprolol. Continue IV fluids. Ambulate. Repeat labs in am. 07-16-2019 Patient feeling better today. Feels stronger when up and ambulating. Staff still notes patient to be unsteady at times. Still continues to have discomfort in left leg due to large hematoma. Denies lightheadedness. Hemoglobin is down today at 8.7. Stool in colostomy does appear to be darker per patient. WBC normal at 5.3, Creatinine 1.1. CRP negative. Awaiting results of echo yet. Will start IV Protonix. Obtain iron studies, peripheral smear. Check occult stool daily. Continue with PT/ambulation. Blood pressure still low diastolically so will continue to hold Metoprolol. Repeat labs in am.
[2019-07-17] MEDS: Acetaminophen 325 MG Tab PO PRN (03:48)
[2019-07-17] MEDS: Clopidogrel 75 MG Tab PO SCH (07:49)
[2019-07-17] MEDS: Aspirin 81 MG Tab.EC PO SCH (07:50)
[2019-07-17] MEDS: Oxybutynin 5 MG Tab.ER PO SCH (07:50)
[2019-07-17] MEDS: Pantoprazole 40 MG Vial IVPUSH SCH (09:07)
[2019-07-17] MEDS: Metoprolol Tartrate 25 MG Tab PO SCH ×2 (12:19→20:08)
--- NOTE | 2019-07-17 17:23 | PCM.PN ---
- General Info Date of Service: 07/17/19 Admission Dx/Problem (Free Text): Syncope Functional Status: Reports: Pain Controlled, Tolerating Diet, Ambulating - Review of Systems General: Reports: Weakness, Fatigue HEENT: Reports: No Symptoms Pulmonary: Reports: Cough. Denies: Shortness of Breath Cardiovascular: Denies: Chest Pain, Palpitations, Lightheadedness Gastrointestinal: Reports: No Symptoms Genitourinary: Reports: No Symptoms Musculoskeletal: Reports: No Symptoms Skin: Reports: No Symptoms Neurological: Reports: Weakness - Patient Data Vitals - Most Recent: Last Vital Signs Temp 98.7 F 07/17/19 16:00 Pulse 73 07/17/19 16:00 Resp 16 07/17/19 16:00 BP 98/35 L 07/17/19 16:00 Pulse Ox 99 07/17/19 16:00 Weight - Most Recent: 122 lb 6.4 oz Lab Results Last 24 Hours: Laboratory Results - last 24 hr 07/16/19 07/17/19 07/17/19 Range/Units 10:30 08:15 08:15 WBC 5.4 (5.0-10.0) 10^3/uL RBC 3.12 L (4.00-5.50) 10^6/uL Hgb 8.6 L (12.0-16.0) g/dL Hct 26.9 L (37.0-47.0) % MCV 86.2 (82.0-94.0) fL MCH 27.6 (27.0-32.0) pg MCHC 32.0 L (33.0-38.0) g/dL RDW Coeff of Lakshmi 14.0 (11.0-15.0) % Plt Count 191 (150-400) 10^3/uL Neut % (Auto) 64.3 (35-85) % Lymph % (Auto) 18.4 (10-55) % [place] % (Auto) 11.3 (0-16) % Eos % (Auto) 5.6 H (0-5) % Baso % (Auto) 0.4 (0-3) % Neut # (Auto) 3.47 (1.80-7.00) 10^3/uL Lymph # (Auto) 0.99 L (1.00-4.80) 10^3/uL [place] # (Auto) 0.61 (0.00-0.80) 10^3/uL Eos # (Auto) 0.30 (0.00-0.45) 10^3/uL Baso # (Auto) 0.02 10^3/uL Sodium 141 (136-145) mEq/L Potassium 4.4 (3.5-5.0) mEq/L Chloride 110 H (98-106) mEq/L Carbon Dioxide 24 (21-32) mmol/L BUN 17 (7-18) mg/dL Creatinine 1.1 H (0.6-1.0) mg/dL Est Cr Clr Drug Dosing 29.57 mL/min Estimated GFR (MDRD) 47 L (>=60) mL/min Glucose 97 (75-99) mg/dL Calcium 8.8 (8.4-10.1) mg/dL Iron 33 L (35-145) ug/dL TIBC 219 L (261-478) ug/dL Unsaturated IBC 186 (155-355) ug/dL Transferrin % Sat 15.1 L (20.0-50.0) % Ferritin 122 (11-307) ng/mL Feliz Results Last 24 Hours: Microbiology 07/16/19 13:20 Occult Blood - Preliminary Stool / Feces Med Orders - Current: Current Medications Acetaminophen (Tylenol) 650 mg PO Q4H PRN PRN Reason: Pain (Mild 1-3)/fever Last Admin: 07/17/19 03:48 Dose: 650 mg Aspirin (Halfprin) 81 mg PO DAILY [facility] Last Admin: 07/17/19 07:50 Dose: 81 mg Atorvastatin Calcium (Lipitor) 20 mg PO BEDTIME [facility] Last Admin: 07/16/19 19:57 Dose: 20 mg Clopidogrel Bisulfate (Plavix) 75 mg PO DAILY [facility] Last Admin: 07/17/19 07:49 Dose: 75 mg Docusate Sodium (Colace) 200 mg PO DAILY PRN PRN Reason: Constipation Furosemide (Lasix) 40 mg PO DAILY PRN PRN Reason: Edema Hydroxyzine HCl (Atarax) 25 mg PO TID PRN PRN Reason: Itching Magnesium Oxide (Magnesium Oxide) 500 mg PO DAILY [facility] Last Admin: 07/17/19 07:49 Dose: 500 mg Metoprolol Tartrate (Lopressor) 12.5 mg PO BID [facility] Last Admin: 07/17/19 12:19 Dose: 12.5 mg Ondansetron HCl (Zofran Odt) 4 mg PO Q4H PRN PRN Reason: nausea, able to take PO Oxybutynin Chloride (Oxybutynin Er) 10 mg PO DAILY [facility] Last Admin: 07/17/19 07:50 Dose: 10 mg Pantoprazole Sodium (Protonix Iv) 40 mg IVPUSH Q24H [facility] Last Admin: 07/17/19 09:07 Dose: 40 mg Tramadol HCl (Ultram) 50 mg PO QID PRN PRN Reason: Pain Discontinued Medications Sodium Chloride (Normal Saline) 1,000 mls @ 50 mls/hr IV ASDIRECTED [facility] Last Admin: 07/15/19 21:15 Dose: 50 mls/hr - Exam General: Alert, Oriented HEENT: Mucous Membr. Moist/[place] Neck: Supple Lungs: Clear to Auscultation, Normal Respiratory Effort Cardiovascular: Regular Rhythm, Tachycardia GI/Abdominal Exam: Normal Bowel Sounds, Soft, Non-Tender Extremities: Normal Inspection, No Pedal Edema Skin: Ecchymosis Neurological: No New Focal Deficit - Problem List & Annotations (1) Syncope SNOMED Code(s): 206047134 Code(s): R55 - SYNCOPE AND COLLAPSE Status: Acute Priority: High Current Visit: Yes Qualifiers: Encounter type: initial encounter (2) Weakness SNOMED Code(s): 72407872 Code(s): R53.1 - WEAKNESS Status: Acute Priority: High Current Visit: Yes - Problem List Review Problem List Initiated/Reviewed/Updated: Yes - My Orders Last 24 Hours: My Active Orders 07/17/19 12:15 Metoprolol Tartrate [Lopressor] 12.5 mg PO BID - Assessment Assessment:: Syncope Weakness - Plan Plan:: Patient admits to feeling weak, gets lightheaded at times. Has discomfort in left leg due to large amount of bruising. Bradycardia noted with rate of 58 during the night, blood pressure 89/35. Metoprolol has been held. Denies any chest pain or shortness of breath this am. Repeat troponin negative this am. UA normal. Obtain echo this am. continue to monitor telemetry. Hold Metoprolol. Continue IV fluids. Ambulate. Repeat labs in am. 07-16-2019 Patient feeling better today. Feels stronger when up and ambulating. Staff still notes patient to be unsteady at times. Still continues to have discomfort in left leg due to large hematoma. Denies lightheadedness. Hemoglobin is down today at 8.7. Stool in colostomy does appear to be darker per patient. WBC normal at 5.3, Creatinine 1.1. CRP negative. Awaiting results of echo yet. Will start IV Protonix. Obtain iron studies, peripheral smear. Check occult stool daily. Continue with PT/ambulation. Blood pressure still low diastolically so will continue to hold Metoprolol. Repeat labs in am. 07-17-2019 Patient feeling good today. Is up and ambulating without lightheadedness. Does feel her strength is improving. Does get tachycardic with ambulation,, 90- 100 at rest. EKG done, does show NSR. Occult of stool negative. Total iron low , ferritin normal, hemoglobin 8.6. Diastolic blood pressure continues to be low. Did contact Dr. Godfrey, plunket nurse in regards to this. As echocardiogram stable, does not feel needs any changes in meds as patient asymptomatic. Due to tachycardia, will restart Metoprolol at half dose 12.5 mg BID. Monitor telemetry and blood pressure, see if becomes symptomatic. If tolerates, may discharge home tomorrow.
[2019-07-17] MEDS: atorvaSTATin 20 MG Tab PO SCH (20:08)
[2019-07-18] MEDS: Metoprolol Tartrate 25 MG Tab PO SCH (08:37)
[2019-07-18] MEDS: Oxybutynin 5 MG Tab.ER PO SCH (08:38)
[2019-07-18] MEDS: Clopidogrel 75 MG Tab PO SCH (08:38)
[2019-07-18] MEDS: Aspirin 81 MG Tab.EC PO SCH (08:38)
[2019-07-18] MEDS: Pantoprazole 40 MG Vial IVPUSH SCH (10:28)
--- NOTE | 2019-07-18 16:27 | PCM.DCSUM1 ---
Discharge Summary - Hospital Course HPI Initial Comments: Patient is an 84 year old female admitted for lightheaded, syncope, and a-fib uncontrolled rate. Patient started on metoprolol yesterday. Her rate was greater than 100. Today it has been 70-80 controlled a-fib. Patient denies any symptoms. Denies farfan, dizziness, lightheaded, neck pain, cp, soa, abd pain. She reporte walking without difficulty. She reports she is ready to go home now. Will discharge. - Discharge Data Discharge Date: 07/18/19 Discharge Disposition: Home, Self-Care 01 Condition: Good - Patient Summary/Data Consults: Consultations 07/16/19 08:40 Consult to Physical Therapy [PT Evaluation and Treatment] [CONS] Routine - Patient Instructions Diet: Usual Diet as Tolerated Activity: As Tolerated Showering/Bathing: May Shower Notify Provider of: Fever, Nausea and/or Vomiting Other/Special Instructions: Shortness of breath, passing out, lightheaded, chest pain. - Discharge Plan *PRESCRIPTION DRUG MONITORING PROGRAM REVIEWED*: No *COPY OF PRESCRIPTION DRUG MONITORING REPORT IN PATIENT GEORGE: No Prescriptions/Med Rec: Metoprolol Tartrate [Lopressor] 12.5 mg PO BID #60 tablet Home Medications: Home Meds Furosemide [Lasix] 40 mg PO DAILY PRN 03/05/14 [History] Oxybutynin Chloride [Oxybutynin Chloride ER] 10 mg PO DAILY 03/05/14 [History] Vitamin B Complex 1 cap PO DAILY 07/26/16 [History] hydrOXYzine pamoate [Hydroxyzine Pamoate] 25 mg PO TID PRN 07/26/16 [History] Cholecalciferol (Vitamin D3) [Vitamin D] 5,000 unit PO DAILY 04/02/17 [History] Docusate Sodium [Stool Softener] 200 mg PO DAILY PRN 04/02/17 [History] Metoprolol Tartrate 25 mg PO BID 04/02/17 [History] traMADol HCl [Tramadol HCl] 50 mg PO QID PRN 04/02/17 [History] Ascorbic Acid [Vitamin C] 1 tab PO DAILY 12/22/18 [History] Aspirin 81 mg PO DAILY 12/22/18 [History] Clopidogrel [Plavix] 1 tab PO DAILY 12/22/18 [History] Cranberry 1 tab PO DAILY 12/22/18 [History] Diphenoxylate HCl/Atropine [Diphenoxylate-Atrop 2.5-0.025] 2 tab PO BID PRN 09/29 [History] Lutein/Minerals/Vit A,C & E [Ocuvite] 1 tab PO DAILY 12/22/18 [History] Magnesium 400 mg PO DAILY 12/22/18 [History] atorvaSTATin Calcium [Atorvastatin Calcium] 20 mg PO DAILY 12/22/18 [History] Calcium Carb & Citrate/Vit D3 [Citracal + D ER] 1 each PO BID 06/04/19 [History] Nitroglycerin 0.4 mg SL ASDIRECTED PRN 06/04/19 [History] Naproxen Sodium 220 mg PO BID PRN 07/14/19 [History] Metoprolol Tartrate [Lopressor] 12.5 mg PO BID #60 tablet 07/18/19 [Rx] Oxygen Therapy Mode: Room Air Patient Handouts: Syncope, Atrial Fibrillation, [id number] - Discharge Summary/Plan Comment DC Time >30 min.: No - General Info Functional Status: Reports: Pain Controlled, Tolerating Diet, Ambulating, Urinating - Review of Systems General: Reports: No Symptoms HEENT: Reports: No Symptoms Pulmonary: Reports: No Symptoms Cardiovascular: Reports: No Symptoms Gastrointestinal: Reports: No Symptoms Genitourinary: Reports: No Symptoms Musculoskeletal: Reports: No Symptoms Skin: Reports: No Symptoms Neurological: Reports: No Symptoms Psychiatric: Reports: No Symptoms - Patient Data Vitals - Most Recent: Last Vital Signs Temp 98.1 F 07/18/19 11:41 Pulse 70 07/18/19 11:41 Resp 16 07/18/19 11:41 BP 133/48 L 07/18/19 11:41 Pulse Ox 99 07/18/19 11:41 Weight - Most Recent: 122 lb 6.4 oz Lab Results - Last 24 hrs: Laboratory Results - last 24 hr 07/18/19 07/18/19 Range/Units 06:50 06:50 WBC 6.1 (5.0-10.0) 10^3/uL RBC 3.24 L (4.00-5.50) 10^6/uL Hgb 9.0 L (12.0-16.0) g/dL Hct 28.1 L (37.0-47.0) % MCV 86.7 (82.0-94.0) fL MCH 27.8 (27.0-32.0) pg MCHC 32.0 L (33.0-38.0) g/dL RDW Coeff of Lakshmi 14.3 (11.0-15.0) % Plt Count 215 (150-400) 10^3/uL Neut % (Auto) 62.5 (35-85) % Lymph % (Auto) 18.0 (10-55) % [place] % (Auto) 12.3 (0-16) % Eos % (Auto) 6.5 H (0-5) % Baso % (Auto) 0.7 (0-3) % Neut # (Auto) 3.82 (1.80-7.00) 10^3/uL Lymph # (Auto) 1.10 (1.00-4.80) 10^3/uL [place] # (Auto) 0.75 (0.00-0.80) 10^3/uL Eos # (Auto) 0.40 (0.00-0.45) 10^3/uL Baso # (Auto) 0.04 10^3/uL Sodium 142 (136-145) mEq/L Potassium 5.1 H (3.5-5.0) mEq/L Chloride 108 H (98-106) mEq/L Carbon Dioxide 27 (21-32) mmol/L BUN 19 H (7-18) mg/dL Creatinine 1.1 H (0.6-1.0) mg/dL Est Cr Clr Drug Dosing 29.57 mL/min Estimated GFR (MDRD) 47 L (>=60) mL/min Glucose 113 H (75-99) mg/dL Calcium 9.3 (8.4-10.1) mg/dL Med Orders - Current: Current Medications Acetaminophen (Tylenol) 650 mg PO Q4H PRN PRN Reason: Pain (Mild 1-3)/fever Last Admin: 07/17/19 03:48 Dose: 650 mg Aspirin (Halfprin) 81 mg PO DAILY [facility] Last Admin: 07/18/19 08:38 Dose: 81 mg Atorvastatin Calcium (Lipitor) 20 mg PO BEDTIME [facility] Last Admin: 07/17/19 20:08 Dose: 20 mg Clopidogrel Bisulfate (Plavix) 75 mg PO DAILY [facility] Last Admin: 07/18/19 08:38 Dose: 75 mg Docusate Sodium (Colace) 200 mg PO DAILY PRN PRN Reason: Constipation Furosemide (Lasix) 40 mg PO DAILY PRN PRN Reason: Edema Hydroxyzine HCl (Atarax) 25 mg PO TID PRN PRN Reason: Itching Magnesium Oxide (Magnesium Oxide) 500 mg PO DAILY [facility] Last Admin: 07/18/19 08:37 Dose: 500 mg Metoprolol Tartrate (Lopressor) 12.5 mg PO BID [facility] Last Admin: 07/18/19 08:37 Dose: 12.5 mg Ondansetron HCl (Zofran Odt) 4 mg PO Q4H PRN PRN Reason: nausea, able to take PO Oxybutynin Chloride (Oxybutynin Er) 10 mg PO DAILY [facility] Last Admin: 07/18/19 08:38 Dose: 10 mg Pantoprazole Sodium (Protonix Iv) 40 mg IVPUSH Q24H [facility] Last Admin: 07/18/19 10:28 Dose: 40 mg Tramadol HCl (Ultram) 50 mg PO QID PRN PRN Reason: Pain Discontinued Medications Sodium Chloride (Normal Saline) 1,000 mls @ 50 mls/hr IV ASDIRECTED [facility] Last Admin: 07/15/19 21:15 Dose: 50 mls/hr - Exam General: Reports: Alert, Oriented, Cooperative, No Acute Distress Neck: Reports: Supple, Trachea Midline, No JVD Lungs: Reports: Clear to Auscultation, Normal Respiratory Effort Cardiovascular: Reports: Irregular Rhythm (controlled rate or 70) Back Exam: Reports: Normal Inspection, Full Range of Motion Extremities: Normal Range of Motion, No Pedal Edema, Normal Capillary Refill Skin: Reports: Warm, Dry, Intact, Ecchymosis (LLE. Chronic) Neurological: Reports: No New Focal Deficit, Normal Gait Psy/Mental Status: Reports: Alert, Normal Affect, Normal Mood
[2019-07-18] MEDS ORDERED: Metoprolol Tartrate 25 MG Tab PO ONE (16:39)
[2019-07-18 16:49] VITALS: BP 130/67; PULSE 80
== END 2019-07-18 18:30 | disposition home or self-care (01) | DRG 310 ==
LOC: CC.FCMC 16:28 → CC.MS 17:09 → UNDOADMIN 17:09 → CC.MS 17:33
PROVIDERS: ADMIT Physician Assistant Medical; ATTEND Family Medicine
DX: I48.91 Unspecified atrial fibrillation (principal); S70.12XA Contusion of left thigh, initial encounter; I35.0 Nonrheumatic aortic (valve) stenosis; G43.809 Other migraine, not intractable, without status migrainosus; Z95.5 Presence of coronary angioplasty implant and graft; E78.5 Hyperlipidemia, unspecified; D64.9 Anemia, unspecified; M10.9 Gout, unspecified; R00.1 Bradycardia, unspecified; Z96.659 Presence of unspecified artificial knee joint; R00.0 Tachycardia, unspecified; W01.10XA Fall on same level from slipping, tripping and stumbling with subsequent striking against unspecified object, initial encounter; Z79.82 Long term (current) use of aspirin; Z79.899 Other long term (current) drug therapy; Z88.1 Allergy status to other antibiotic agents; Z88.2 Allergy status to sulfonamides; Z88.5 Allergy status to narcotic agent; Z88.0 Allergy status to penicillin; Z88.8 Allergy status to other drugs, medicaments and biological substances; Z98.49 Cataract extraction status, unspecified eye; Z86.73 Personal history of transient ischemic attack (TIA), and cerebral infarction without residual deficits; Z90.49 Acquired absence of other specified parts of digestive tract; Z90.710 Acquired absence of both cervix and uterus; Z98.890 Other specified postprocedural states; I25.2 Old myocardial infarction
CPT/HCPCS: 36415; 70450; 80048; 80053; 81001; 81003; 82270; 82550; 82728; 83540; 83550; 84484; 85025; 85046; 86140; 93005; 93306; 97110-GP; 97161-GP; A9270-GY; C9113; J7030

== ENCOUNTER 2023-07-25 15:49 | Emergency (ER) | payer MEDICARE, OTHER ==
[2023-07-25 16:48] VITALS: BP 130/64; PULSE 64
[2023-07-25] MEDS ORDERED: Furosemide 40 MG/4 ML VIAL IVPUSH ONE (17:29)
[2023-07-25] MEDS: Furosemide 40 MG/4 ML VIAL IM ONE (18:02)
== END 2023-07-25 18:37 | disposition home or self-care (01) ==
LOC: SUPCPDRO 15:49 → CC.ED 15:49
DX: R77.8 Other specified abnormalities of plasma proteins (principal); I25.10 Atherosclerotic heart disease of native coronary artery without angina pectoris; K21.9 Gastro-esophageal reflux disease without esophagitis; I11.0 Hypertensive heart disease with heart failure; I50.9 Heart failure, unspecified; Z86.73 Personal history of transient ischemic attack (TIA), and cerebral infarction without residual deficits; Z86.718 Personal history of other venous thrombosis and embolism; Z88.1 Allergy status to other antibiotic agents; Z88.5 Allergy status to narcotic agent; Z88.0 Allergy status to penicillin; Z88.8 Allergy status to other drugs, medicaments and biological substances; Z88.2 Allergy status to sulfonamides; Z79.01 Long term (current) use of anticoagulants; Z79.899 Other long term (current) drug therapy
CPT/HCPCS: 36415; 71045; 83880; 84484; 96372; 99284; 99285; J1940